=== PATIENT | male | born 1980 | race Caucasian/White ===

== ENCOUNTER 2023-08-02 23:20 | Inpatient (IN) | payer MEDICARE, MEDICAID, SELFPAY ==
[2023-08-03] VITALS (9 sets, daily range): BP systolic 135–181; BP diastolic 88–114; PULSE 94–119; RESP 16; TEMP 36.6–36.9; O2SAT 93–98; BMI 29.6; BMI 29.5
--- NOTE | 2023-08-03 00:30 | ED.GENADULT ---
HPI - General Adult General Time Seen by Provider: 00:21 Date Seen: 08/03/23 Chief complaint: Laceration/Wound Stated complaint: Open wound-infected/painful/red-L foot Time Seen by Provider: 08/03/23 00:21 Source: patient, RN notes reviewed and old records reviewed Mode of arrival: ambulatory Limitations: no limitations History of Present Illness HPI narrative: This 43yo male is coming into the ED this evening for concern of infection in his left leg. He has a known wound on the bottom of his foot, has had amputation due to toe infection on this foot prior. He has had a history of left leg cellulitis. He has had a history of DVT, states he and his doctor been aware but it was below the knee in this leg. In his history here, he has been on Coumadin in the past for treatment of history of DVT. It appears we last saw him for right leg hematoma in September of 2021. He states this ended up opening up and he had a wound for about 9 months. , this was on his right leg. [facility] ulcer on the plantar surface of his left foot, he had gone multiple times but then received a bill for over 400 dollars. He states he cannot afford that. Did review with him that he needs to contact the billing office, make sure that this is correct, make sure that they are sending this through to his insurance. He has maybe had a little nausea tonight but no fevers. He is noticing increased swelling and redness of this leg, has had prior episodes of cellulitis and obviously was concerned that he was developing worsening cellulitis. He is not aware of any history of MRSA. 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 There is reported history of acute cholecystitis, thoracic compression fracture, right leg hematoma. He has had cataract surgery. He reported to have tobacco dependence. Related Data Home Medications Medication Instructions Recorded Confirmed amlodipine 10 mg tablet 10 mg PO DAILY 08/03/23 08/03/23 buprenorphine 8 mg-naloxone 2 mg 2 film sublingual DAILY 08/03/23 08/03/23 sublingual film finasteride 5 mg tablet 5 mg PO DAILY 08/03/23 08/03/23 folic acid 20 mg capsule 20 mg PO DAILY 08/03/23 08/03/23 lisinopril 20 mg tablet 20 mg PO DAILY 08/03/23 08/03/23 methotrexate sodium 2.5 mg tablet 15 mg PO Q7D 08/03/23 08/03/23 Allergies Allergy/AdvReac Type Severity Reaction Status Date / Time acetaminophen [From Percocet] Allergy Intermediate Hives Verified 08/03/23 00:10 oxycodone [From Percocet] Allergy Intermediate Hives Verified 08/03/23 00:10 Review of Systems Status of ROS: Reports: 6 or more systems reviewed and unremarkable except as noted in History and below [facility] Medical History (Updated 08/04/23 @ 15:19 by Frank Lion MD) Chronic pain ?G89.29 - Other chronic pain (ICD-10) History of DVT (deep vein thrombosis) ?Z86.718 - Personal history of other venous thrombosis and embolism (ICD-10) Pulmonary embolism (04/15/14) ?I26.99 - Other pulmonary embolism without acute cor pulmonale (ICD-10) Non-traumatic compression fracture of fourth lumbar vertebra (08/23/17) ?M48.56XA - Collapsed vertebra, not elsewhere classified, lumbar region, initial encounter for fracture (ICD-10) Essential hypertension ?I10 - Essential (primary) hypertension (ICD-10) Diabetic ulcer of toe of left foot associated with type 2 diabetes mellitus (12/20/18) ?E11.621 - Type 2 diabetes mellitus with foot ulcer (ICD-10) ?L97.529 - Non-pressure chronic ulcer of other part of left foot with unspecified severity (ICD-10) Lupus ?M32.9 - Systemic lupus erythematosus, unspecified (ICD-10) Psoriasis ?L40.9 - Psoriasis, unspecified (ICD-10) Social History What is your current living situation?: I presently have a place to live Problems where you live: no known problems Problems where you live details: N/A In the past 12 months, utilities in danger of being shut off: no In past 12 months, lack of transportation kept you from medical appts, meetings, work, or getting things needed for daily living: no In the past 12 mos, have been you worried that your food would run out before you had money to buy more?: never true In the past 12 mos, the food you bought just didn't last and you didn't have money to buy more?: never true Highest level of school completed/degree received: some college, no degree Smoking Status: Current every day smoker What tobacco products do you use: cigarettes Smoking packs per day: 0.5 Smoking cigarettes per day: 10.0 Years smoked: 25 Smoking pack-years: 12.50 How often do you have a drink containing alcohol: never How often do you have six or more drinks on one occasion: Never AUDIT-C Alcohol total score: 0 Non-prescribed substance use: denies use Caffeine: Yes (2 energy drinks daily) How often does anyone, including family, friends and others, physically hurt you: never How often does anyone, including family, friends and others, insult or talk down to you: never How often does anyone, including family, friends and others, threaten you with harm: never How often does anyone, including family, friends and others, scream or curse at you: never service: No Exam Const: Vital Signs, click to edit/add: Vital Signs - 24 hr 08/03/23 00:14 08/03/23 00:30 Temperature 98 F Pulse Rate [Pulse Oximeter] 119 H Respiratory Rate 16 Blood Pressure [Ri ght Upper Arm] 147/94 H Pulse Oximetry 96 96 Oxygen Delivery Me thod Room Air Patient is alert, interactive, no apparent distress. He is in exam room 2. Face atraumatic, sclera clear, conjugate gaze. Neck supple, lungs are clear with good air entry, no wheezing or crackles. CV regular rate and rhythm, no murmur, normal S1-S2, no S3-S4. Abdomen is soft, nontender, feel no masses or organomegaly. He has no pitting edema of his right lower extremity, can see the wound that is healed that was along his right anterior gilmore from the prior hematoma. His left lower extremity has chronic pigmentary changes but also erythema. There is a line demarcated just below the knee to where the erythema extends. He has ulcerated nondraining wound on the plantar surface of this left foot, overlying what would be the 1st metatarsophalangeal joint area. Documenting provider has reviewed patient's vital signs: yes Course Course ED Course: Will obtain ultrasound, need to try to get the of medication list on him. He is also going to get an x-ray of the foot to see if there is any preliminary suggestion of osteomyelitis on this. Will get a full complement of labs, place an IV. I will initiate 1 L of IV fluids. I do think he is likely going to need antibiotics for cellulitis. He is not febrile but mildly tachycardic on presentation. He is having no acute chest or respiratory symptoms at this time. Consultations Consultation #1: Have spoken with the hospitalist Dr. Bridges. Reviewed with him that I do think this patient's cellulitis in wound do require hospitalization. We discussed antibiotic coverage. I would favor coverage for MRSA. Did want use clindamycin. Subsequently ordered 900 mg IV clindamycin. We are still awaiting his foot x-ray to be taken, the ultrasound for DVT to be read. Patient is updated and in agreement to stay. He has enough chronic changes in this lower extremity, an open ulcer, cellulitis and possibly underlying DVT. I certainly feel the most prudent approach is to hit this aggressively with IV antibiotics and get wound care set up for him again. He understands and certainly agrees with this approach. Time: 01:35 Vital Signs Vital signs: Initial Vital Signs Temperature 98 F 08/03/23 00:14 Temperature Source Oral 08/03/23 00:14 Pulse Rate 119 H 08/03/23 00:14 Pulse Rhythm Regular 08/03/23 00:14 Pulse Strength 3+ Normal 08/03/23 00:14 Respiratory Rate 16 08/03/23 00:14 Blood Pressure 147/94 H 08/03/23 00:14 Blood Pressure Mean 111 H 08/03/23 00:14 Blood Pressure Position Sitting 08/03/23 00:14 Pulse Oximetry 96 08/03/23 00:14 Oxygen Delivery Method Room Air 08/03/23 00:14 Vital Signs Temperature 98 F 08/03/23 00:14 Pulse Rate 119 H 08/03/23 00:14 Respiratory Rate 16 08/03/23 00:14 Blood Pressure 147/94 H 08/03/23 00:14 Pulse Oximetry 96 08/03/23 00:14 Oxygen Delivery Method Room Air 08/03/23 00:14 Temperature 98.3 F 08/04/23 08:54 Pulse Rate 99 08/04/23 08:54 Respiratory Rate 16 08/04/23 08:54 Blood Pressure 174/107 H 08/04/23 08:54 Pulse Oximetry 96 08/04/23 08:54 Oxygen Delivery Method Room Air 08/04/23 08:54 Medications Administered Medications: Discontinued Medications Generic Name Dose Route Start Last Admin Trade Name Freq PRN Reason Stop Dose Admin Amlodipine Besylate 10 mg 08/03/23 09:00 08/04/23 08:55 Amlodipine 10 Mg Tablet PO 10 mg DAILY JORDY Administration Buprenorphine/Naloxone 2 each 08/03/23 16:20 08/04/23 08:56 Buprenorphine-Nalox 8-2mg Film SUBLINGUAL 2 each DAILY JORDY Administration Enoxaparin Sodium 100 mg 08/03/23 03:15 08/04/23 03:26 Enoxaparin 100 Mg/Ml Inj SUBCUT 100 mg Q12H JORDY Administration Finasteride 5 mg 08/03/23 09:00 08/04/23 09:21 Finasteride 5 Mg Tablet PO 5 mg DAILY JORDY Administration Folic Acid 1 mg 08/04/23 09:15 08/04/23 09:20 Folic Acid 1 Mg Tablet PO 1 mg DAILY JORDY Administration Hydromorphone HCl 0.2 - 0.5 mg 08/03/23 03:06 08/03/23 03:15 Hydromorphone 0.5 Mg/0.5 Ml Inj IVP 0.5 mg Q2H PRN Administration Pain Hydromorphone HCl 2 mg 08/03/23 16:44 08/04/23 05:25 Hydromorphone 2 Mg Tablet PO 2 mg Q6H PRN Administration Pain Clindamycin Phosphate 600 mg in 50 mls @ 100 mls/hr 08/03/23 01:33 08/03/23 01:36 Clindamycin 600 Mg/50 Ml-D5w IVPB Not Given Q8H JORDY Clindamycin Phosphate 900 mg in 50 mls @ 100 mls/hr 08/03/23 01:33 08/04/23 09:02 Clindamycin 900 Mg/50 Ml-D5w IVPB 100 mls/hr Q8H JORDY Administration Sodium Chloride 1,000 mls @ 125 mls/hr 08/03/23 03:04 08/03/23 03:14 0.9 % Sodium Chloride 1000 Ml IV 125 mls/hr .Q8H JORDY Administration Lisinopril 20 mg 08/04/23 09:10 08/04/23 09:20 Lisinopril 20 Mg Tablet PO 20 mg DAILY JORDY Administration Sodium Chloride 5 ml 08/03/23 02:59 08/03/23 16:56 Sodium Chloride 0.9 % (Flush) 10 Ml Syringe IVF 5 ml .FLUSH PRN Administration Sodium Chloride 5 ml 08/03/23 09:00 08/04/23 08:56 Sodium Chloride 0.9 % (Flush) 10 Ml Syringe IVF 5 ml BID JORDY Administration Medical Decision Making Lab Data Lab results reviewed: Yes I reviewed the patient's lab results Labs: Lab Results 08/03/23 08/03/23 08/03/23 Range/Units 00:40 00:57 07:00 WBC 18.54 H 16.30 H (4.50-11.00) K/uL RBC 4.48 4.08 L (4.30-5.90) m/uL Hgb 12.9 L 11.8 L (13.5-17.5) gm/dL Hct 39.2 35.6 L (37.0-53.0) % MCV 88 87 (80-100) fL MCH 29 29 (26-34) pg MCHC 33 33 (32-36) gm/dL RDW Coeff of Francia 18.5 H 18.4 H (11.5-15.5) % Plt Count 305 306 (140-440) K/uL Neut % (Auto) 85.5 H 82.0 H (42.0-72.0) % Lymph % (Auto) 6.0 L 8.8 L (20-44) % Ramsey % (Auto) 7.3 7.4 (0.0-11.0) % Eos % (Auto) 0.2 0.6 (0.0-7.0) % Baso % (Auto) 0.1 0.2 (0.0-3.0) % Neut # (Auto) 15.90 H 13.40 H (1.7-7.0) K/uL Lymph # (Auto) 1.10 1.40 (0.90-2.90) K/uL Ramsey # (Auto) 1.40 H 1.20 H (0.00-0.90) K/UL Eos # (Auto) 0.00 0.10 (0.00-0.50) K/uL Baso # (Auto) 0.00 0.00 (0.00-0.30) K/uL Abs Immat Gran (auto) 0.20 0.20 (0.00-0.30) K/uL Imm/Tot Granulo (auto) 0.9 1.0 % INR 0.91 (0.91-1.10) D-Dimer Quant (PE/DVT) 1.45 H (0.00-0.50) ug/ml Sodium 131 L 133 L (135-149) mmol/L Potassium 3.9 3.9 (3.6-5.1) mmol/L Chloride 100 106 (96-114) mmol/L Carbon Dioxide 21 22 (20-32) mmol/L Anion Gap 10 5 L (7-15) mEq/L BUN 24 23 (5-24) mg/dL Creatinine 1.7 H 1.5 (0.5-1.5) mg/dL Estimated Creat Clear 67.37 76.35 Estimated GFR 50 58 ml/min Glucose 106 100 (60-115) mg/dL Lactate 0.7 (0.5-1.9) mmol/L Calcium 8.5 8.3 L (8.4-10.6) mg/dL Total Bilirubin 0.7 (0.1-1.5) mg/dL AST 37 H (12-35) U/L ALT 42 (4-50) U/L Alkaline Phosphatase 140 (40-150) U/L C-Reactive Protein 13.8 H (0.5-1.0) mg/dL Total Protein 7.2 (6.0-8.3) g/dL Albumin 3.9 (3.3-5.0) g/dL Procalcitonin 3.39 H (<0.50) ng/mL Lab Acknowledgement Test Added Imaging Data XR left foot: Attestation: I have reviewed the pertinent imaging results. My impression: On the lateral view, do see what appears to be likely soft tissue changes. Cannot say that I definitively see any changes for osteomyelitis. Await Radiology over-read. Radiologist's impression: Patient: KENDRICK WISE Facility:?[facility] Patient ID:?[id number] Site Patient [id number]:?[id number] Site :?1980 Study:?XRay Extremity Left Foot-08/03/2023 2:06:39 AM Ordering Physician:Rebekah Grossman Final Report: INDICATION: Left foot wound. TECHNIQUE: Left foot radiographs, 3 views. COMPARISON: Left foot radiographs 09/30/2016. FINDINGS: Since prior radiographs from 09/30/2016, patient underwent an amputation at the 1st metatarsophalangeal joint. There is moderate to severe soft tissue edema around the 1st metatarsal head, with possible subtle osteopenia medially without definite cortical defects. No acute fractures or dislocation. The remaining joint spaces are preserved. Mild degenerative spurring of the dorsal midfoot. Small plantar calcaneal osteophyte. No subcutaneous emphysema. No radiopaque foreign bodies. IMPRESSION: 1. Status post interval amputation at the 1st MTP joint. 2. Moderate to severe soft tissue swelling involving the amputation site, with possible subtle osteopenia of the metatarsal head medially, without definite osseous erosions identified. If there is continue clinical suspicion for acute osteomyelitis, consider further evaluation with MR or a nuclear medicine triple phase bone scan. 3. No acute fractures or dislocation. Dictated by Alexis Lenz MD @ 08/03/2023 3:11:12 AM (Electronic Signature) Discharge Plan Discharge Clinical Impression: Cellulitis of left leg Chronic foot ulcer Qualifiers: Laterality: left Patient Disposition: Admitted As Observation
--- NOTE | 2023-08-03 00:35 | XR_ITS ---
Final Report Patient: KENDRICK WISE Facility:?[facility] Patient ID:?[id number] Site Patient ID:?[id number] Site :?1980 Study:?XRay Extremity Left Foot-08/03/2023 2:06:39 AM Ordering Physician:Rebekah Grossman Final Report: INDICATION: Left foot wound. TECHNIQUE: Left foot radiographs, 3 views. COMPARISON: Left foot radiographs 09/30/2016. FINDINGS: Since prior radiographs from 09/30/2016, patient underwent an amputation at the 1st metatarsophalangeal joint. There is moderate to severe soft tissue edema around the 1st metatarsal head, with possible subtle osteopenia medially without definite cortical defects. No acute fractures or dislocation. The remaining joint spaces are preserved. Mild degenerative spurring of the dorsal midfoot. Small plantar calcaneal osteophyte. No subcutaneous emphysema. No radiopaque foreign bodies. IMPRESSION: 1. Status post interval amputation at the 1st MTP joint. 2. Moderate to severe soft tissue swelling involving the amputation site, with possible subtle osteopenia of the metatarsal head medially, without definite osseous erosions identified. If there is continue clinical suspicion for acute osteomyelitis, consider further evaluation with MR or a nuclear medicine triple phase bone scan. 3. No acute fractures or dislocation. Dictated by Alexis Lenz MD @ 08/03/2023 3:11:12 AM (Electronic Signature)
--- NOTE | 2023-08-03 00:35 | US_ITS ---
Final Report Patient: KENDRICK WISE Facility:?[facility] Patient ID:?[id number] Site Patient ID:?[id number]. Site :?1980 Study:?US Extremity Left DVT-08/03/2023 1:22:38 AM Ordering Physician:?ED Final Report: INDICATION: Calf redness, history of DVT COMPARISON: None. TECHNIQUE: A compression venous ultrasound exam was performed of the left lower extremity using mckinley-scale imaging, color Doppler and spectral Doppler analysis. FINDINGS: Sonographic imaging of the left lower extremity demonstrates normal compressibility and color Doppler venous blood flow within the common femoral vein, deep femoral vein, and the proximal greater saphenous vein. Within the thigh, the femoral vein is patent and compressible. At a lower level, the popliteal and posterior tibial veins also show normal compressibility and color Doppler venous blood flow. There is a short segment clot within the small saphenous vein in the proximal calf. Limited imaging of the contralateral groin demonstrates a normal spectral waveform and color Doppler venous blood flow within the right common femoral vein. IMPRESSION: No evidence of deep vein thrombosis within the left lower extremity. Short-segment superficial clot within the left proximal calf short saphenous vein. Dictated by Gurpreet España MD @ 08/03/2023 9:03:46 AM (Electronic Signature)
[2023-08-03 00:48] LABS: Lactate* 0.7 mmol/L (0.5-1.9)
[2023-08-03 00:50] LABS: Basophils Percent Auto 0.1 % (0.0-3.0); Eosinophils Percent Auto 0.2 % (0.0-7.0); Hematocrit 39.2 % (37.0-53.0); Hemoglobin* 12.9 gm/dL (13.5-17.5); Immature Granulocytes Pct Auto 0.9 %; Mean Corpuscular HGB Conc 33 gm/dL (32-36); Mean Corpuscular Hemoglobin 29 pg (26-34); Mean Corpuscular Volume 88 fL (80-100); Monocytes Percent Auto 7.3 % (0.0-11.0); Neutrophils Percent Auto 85.5 % (42.0-72.0); Platelet Count* 305 K/uL (140-440); RDW Coefficient of Variation % 18.5 % (11.5-15.5); Red Blood Count 4.48 m/uL (4.30-5.90); White Blood Count* 18.54 K/uL (4.50-11.00)
[2023-08-03 00:52] LABS: Slide Review Reflex No
[2023-08-03 01:12] LABS: Albumin* 3.9 g/dL (3.3-5.0); Chloride* 100 mmol/L (96-114)
[2023-08-03 01:13] LABS: Potassium* 3.9 mmol/L (3.6-5.1); Sodium* 131 mmol/L (135-149)
[2023-08-03 01:15] LABS: Bilirubin Total* 0.7 mg/dL (0.1-1.5); Creatinine* 1.7 mg/dL (0.5-1.5); Est. Creatinine Clearance* 67.37; Estimated Glomerular Filt Rate 50 ml/min
[2023-08-03 01:16] LABS: Alanine Aminotransferase* 42 U/L (4-50); Alkaline Phosphatase* 140 U/L (40-150); Anion Gap 10 mEq/L (7-15); Aspartate Amino Transferase* 37 U/L (12-35); Blood Urea Nitrogen* 24 mg/dL (5-24); Calcium* 8.5 mg/dL (8.4-10.6); Carbon Dioxide* 21 mmol/L (20-32); Glucose* 106 mg/dL (60-115); Total Protein* 7.2 g/dL (6.0-8.3)
[2023-08-03 01:17] LABS: INR 0.91 (0.91-1.10); Prothrombin Time 12.8 Seconds
[2023-08-03 01:19] LABS: D Dimer Quantitative* 1.45 ug/ml (0.00-0.50)
--- OUTSIDE RECORDS SUMMARY | 2023-08-03 01:20 | XMS_ITS | Clinical Summary ---
Author Name Unknown Organization [facility] Address [address] [place] [address] Care Team Providers Care Housekeeper Head Name Role Phone Dominik Tan MD Primary Care Provider [phone] Allergies Active Allergy Reactions Criticality Noted Date Comments Hydrocodone-Acetaminophen Itching 04/07/2012 Medications Medication Sig Dispensed Refills Start Date End Date Status lisinopril (PRINIVIL) 40 mg oral tablet Take 20 mg by mouth once daily. 0 Active HYDROmorphone (DILAUDID) 4 mg oral tablet Take 1-2 tablets (4-8 mg) by mouth every 4 (four) hours as needed (Pain). 80 tablet 0 08/24/2017 Active oxyCODONE-acetaminoph en (PERCOCET) 5-325 mg oral tablet Take 1 tablet by mouth every 6 (six) hours as needed for Pain. 40 tablet 0 12/20/2018 Active Active Problems Problem Noted Date Diagnosed Date Diabetic ulcer of toe of lef t foot associated with type 2 diabetes mellitus, with muscle involvement without evidence of necrosis 12/20/2018 Non-traumatic compression fr acture of fourth lumbar vertebra 08/23/2017 Low back pain 08/23/2017 Pneumonia 04/15/2014 Pleural effusion 04/15/2014 Pulmonary embolism 04/15/2014 Systemic lupus erythematosus , unspecified SLE type, unspecified organ involvement status Essential hypertension DVT (deep venous thrombosis), unspecified latera lity Acute midline low back pain with bilateral sciat ica Non-traumatic compression fr acture of fourth lumbar vertebra, initial encounter Overview: Vendor update to replace retired or updated dx codes and/or terms. Family History Medical History Relation Comments Heart Disease Mother age 47 Relation Status Comments Mother Social History Tobacco Use Types Packs/Day Years Used Date Smoking Tobacco: Every Day Cigarettes 0.5 25 Smokeless Tobacco: Never Comments:quitting Alcohol Use Standard Drinks/Week Comments Yes 0 (1 standard drink = 0.6 oz pur e alcohol) 1-2 times a month Sex and Gender Information Value Date Recorded Sex Assigned at Not on file Gender Identity Not on file Sexual Orientation Not on file Last Filed Vital Signs Vital Sign Reading Time Taken Comments Blood Pressure 130/88 09/21/2021 9:22 AM CDT Pulse 103 09/21/2021 9:22 AM CDT Temperature 36.2 ??C (97.2 ??F) 09/21/2021 9:22 AM CD T Respiratory Rate 16 01/22/2019 8:03 AM CDT Oxygen Saturation 94% 09/21/2021 9:22 AM CDT Inhaled Oxygen Concentration - - Weight 129.3 kg (285 lb) 12/20/2018 8:54 AM CDT Height 195.6 cm (6' 5) 12/20/2018 8:54 AM CDT Body Mass Index 33.8 12/20/2018 8:54 AM CDT Plan of Treatment Health Maintenance Due Date Last Done Comments Colonoscopy 1980 Eye Exam 1980 Medicare Wellness Visit 1980 COVID-19 Vaccine (#1) 1978 Anxiety Screening (KAVITA-2) 1979 Depression Assessment (PHQ-2) 1979 Pneumococcal <65 (1 of 2 - PCV) 02/22/1984 HgbA1C 01/29/2021 08/01/2020 Creatinine 02/06/2022 02/06/2021, 07/21, 03/30/2019, Additional history exists Influenza Vaccine (#1) 2023 04/20/2021, 2016 Adult Tetanus Booster 11/01/2026 11/01/2016 Hepatitis C Screening Completed 10/17/2003 Advance Directives For more information, please contact: [phone] Latest Code Status on File Code Status Date Activated Date Inactivated Comments Full Code 08/23/2017 4:16 PM 08/24/2017 9:23 PM Question Answer Comments How was code status determined? Patient Code Status History Code Status Date Activated Date Inactivated Comments Full Code 04/15/2014 1:38 PM 04/17/2014 10:38 PM Question Answer Comments How was code status determined? Patient Care Teams Housekeeper Head Relationship Specialty Start Date End Date Dominik Tan MD [address] [facility] [address] [place] [address] PCP - General Family Medicine 08/10/22
--- OUTSIDE RECORDS SUMMARY | 2023-08-03 01:20 | XMS_ITS | Referral Summary ---
Author Name Unknown Organization [facility] Address [address] [place] [address] Care Team Providers Care Filter Tank Tender Helper Name Role Phone Dominik Tan MD Primary Care Provider Allergies Active Allergy Reactions Criticality Noted Date [...] retired or updated dx codes and/or terms. Social History Tobacco Use Types Packs/Day Years [...] 12/20/2018 8:54 AM CDT Plan of Treatment Not on file Advance Directives For more information, please contact: [phone] Latest Code Status on File Code Status Date Activated Date Inactivated Comments Full Code 08/23/2017 4:16 PM 08/24/2017 9:23 PM Question Answer Comments How was code status determined? Patient Code Status History Code Status Date Activated Date Inactivated Comments Full Code 04/15/2014 1:38 PM 04/17/2014 10:38 PM Question Answer Comments How was code status determined? Patient Care Teams Filter Tank Tender Helper Relationship Specialty Start Date End Date Dominik Tan MD [address] [facility] [address] [place] [address] PCP - General Family Medicine 08/10/22
--- OUTSIDE RECORDS SUMMARY | 2023-08-03 01:20 | XMS_ITS | Encounter Summary ---
Author Name Unknown Organization [facility] Address [address] [place] [id number] Care Team Providers Care Strategic Analyst Name Role Phone Dominik Tan MD Primary Care Provider [phone] Encounter Details Date Type Department Care Team (Latest Contact Info) Description 03/14/2023 3:10 PM CDT Ancillary Procedure [address] [place] [address] Right hand pain Social History Tobacco Use Types Packs/Day Years Used Date Smoking Tobacco: Every Day Cigarettes 0.5 25 Smokeless Tobacco: Never Comments:quitting Alcohol Use Standard Drinks/Week Comments Yes 0 (1 standard drink = 0.6 oz pur e alcohol) 1-2 times a month Sex and Gender Information Value Date Recorded Sex Assigned at Not on file Gender Identity Not on file Sexual Orientation Not on file documented as of this encounter Plan of Treatment Not on file documented as of this encounter Procedures Procedure Name Priority Date/Time Associated Diagnosis Comments XR HAND RT 3 VIEW Routine 03/14/2023 3:2 6 PM CDT Right hand pain documented in this encounter Results * XR HAND RT 3 VIEW (03/14/2023 3:26 PM CDT) Anatomical Region Laterality Modality Extremity Radiographic Kylee ging 03/14/2023 3:47 PM CDT Impressions 03/14/2023 3:50 PM CDT IMPRESSION: 1. ??Prior posttraumatic deformity of the 5th metacarpal. 2. 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 No discrete acute fracture or dislocation visualized. REPORT SIGNED BY Patt Cosme M.D. [facility] 03/14/2023 3:50 PM CDT EXAM: ??XR HAND RT 3 VIEW DATE: 03/14/2023 3:06 PM CLINICAL DATA: ??Male, 43 years old, presents with pain in the right hand. COMPARISON: ??04/07/2012 right hand radiographs. TECHNIQUE:PA, PA oblique and lateral views. INTERPRETATION: ?? Diffuse soft tissue edema. No retained radiopaque foreign body. Old fracture deformity of the 5th metacarpal. 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 Remodeling of the 1st CMC joint. No discrete acute fracture or dislocation visualized. Generally preserved MCP and IP joint spaces. Stable small bone island in the distal phalanx of the 4th finger. Procedure Note Patt Cosme MD - 03/14/2023 EXAM: XR HAND RT 3 VIEW DATE: 03/14/2023 3:06 PM CLINICAL DATA: Male, 43 years old, presents with pain in the right hand. COMPARISON: 04/07/2012 right hand radiographs. TECHNIQUE:PA, PA oblique and lateral views. INTERPRETATION: Diffuse soft tissue edema. No retained radiopaque foreign body. Oldfracture deformity of the 5th metacarpal. Advanced hypertrophicdegeneration of the 1st CMC joint with multiple adjacent ossicles.Remodeling of the 1st CMC joint. No discrete acute fracture or dislocationvisualized. Generally preserved MCP and IP joint spaces. Stable small boneisland in the distal phalanx of the 4th finger. IMPRESSION IMPRESSION: 1. Prior posttraumatic deformity of the 5th metacarpal. 2. 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 No discrete acute fracture or dislocation visualized. REPORT SIGNED BY Patt Cosme M.D. Dominik Tan MD XRAY ORDERABLE documented in this encounter Visit Diagnoses Diagnosis Right hand pain Pain in limb documented in this encounter Care Teams Strategic Analyst Relationship Specialty Start Date End Date Dominik Tan MD [address] [facility] [address] [place] [address] PCP - General Family Medicine 08/10/22 documented as of this encounter
--- OUTSIDE RECORDS SUMMARY | 2023-08-03 01:21 | XMS_ITS | Clinical Summary ---
Author Name Unknown Organization [facility] Address [address] [place] [address] Phone Care Team Providers Care Shot Lighter Name Role Phone Dominik Tan MD Primary Care Provider [phone] Family History Medical History Relation Comments Heart disease Mother 2 Relation Status Comments Father Unknown Mother 1 Mother 2 Social History Tobacco Use Types Packs/Day Years Used Date Smoking Tobacco: Every Day Cigarettes 0.5 Alcohol Use Standard Drinks/Week Comments Yes 0 (1 standard drink = 0.6 oz pure alcohol) Alcoholic Drinks/day: Occasional social drink Sex and Gender Information Value Date Recorded Sex Assigned at Not on file Gender Identity Not on file Sexual Orientation Not on file Plan of Treatment Health Maintenance Due Date Last Done Comments Hepatitis B Vaccine (1 of 3 - 3-dose series) 1980 Pneumococcal Vaccine: Pediat rics (0 to 5 Years) and At-Risk Patients (6 to 64 Years) (1 of 2 - PCV) 02/22/1984 Diabetes: Ophthalmology Exam 09/01/2020 Diabetes: Pedal Pulse Checked 09/01/2020 Diabetes: Sensory Foot Exam 09/01/2020 Diabetes: Visual Foot Exam 09/01/2020 Diabetes: Hemoglobin A1C 10/29/2020 08/01/2020, 01/18 Influenza Vaccine (#1) 2023 Care Teams Shot Lighter Relationship Specialty Start Date End Date Dominik Tan MD [address] [facility] [address] [place] [address] PCP - General 03/05/19
--- OUTSIDE RECORDS SUMMARY | 2023-08-03 01:21 | XMS_ITS | Encounter Summary ---
Author Name Unknown Organization [facility] Address [address] [place] [address] Care Team Providers Care Bus Washer Name Role Phone Dominik Tan MD Primary Care Provider [phone] Reason for Referral * (Routine) - Closed Specialty Diagnoses / Procedures Referred By Contac t Referred To Contact Diagnoses CAPUTO (dyspnea on exertion) Procedures [facility] NUCLEAR STRESS TEST Dominik Tan MD [address] [place] [id number] Referral ID Status Reason Start Date Expiration Date Visits Re quested Visits Authorized [id number] Closed 07/28/2022 1 1 PRODUCTION ASSISTANT Reason for Visit * (Routine) - Closed Specialty Diagnoses / Procedures Referred By Contbrenda hernadez Referred To Contact Diagnoses CAPUTO (dyspnea on exertion) Procedures [facility] NUCLEAR STRESS TEST Dominik Tan MD [address] [place] [id number] Referral ID Status Reason Start Date Expiration Date Visits Re quested Visits Authorized [id number] Closed 07/28/2022 1 1 Encounter Details Date Type Department Care Team (Latest Contact Info) Description 08/16/2022 7:35 AM POST PRODUCTION ASSISTANT - 08/16/2022 11:59 PM POST PRODUCTION ASSISTANT Hospital Encounter [facility] V[facility] Cardiac [facility] [address] [place] [address] [id number] Discharge Disposition: Returning Home/Self Care Social History Tobacco Use Types Packs/Day Years Used Date Smoking Tobacco: Every Day Cigarettes 0.5 25 Smokeless Tobacco: Never Comments:quitting Alcohol Use Standard Drinks/Week Comments Yes 0 (1 standard drink = 0.6 oz pur e alcohol) 1-2 times a month Sex and Gender Information Value Date Recorded Sex Assigned at Not on file Gender Identity Not on file Sexual Orientation Not on file COVID-19 Exposure Response Date Recorded In the last 10 days, have yo u been in contact with someone who was confirmed or suspected to have Coronavirus/COVID-19? No / Unsure 08/16/2022 7:33 AM POST PRODUCTION ASSISTANT documented as of this encounter Medications at Time of Discharge Medication Sig Dispensed Refills Start Date End Date HYDROmorphone (DILAUDID) 4 mg oral tablet Take 1-2 tablets (4-8 mg) by mouth every 4 (four) hours as needed (Pain). 80 tablet 0 08/24/2017 lisinopril (PRINIVIL) 40 mg oral tablet Take 20 mg by mouth once daily. 0 oxyCODONE-acetaminophen (PERCOCET) 5-325 mg oral tablet Take 1 tablet by mouth every 6 (six) hours as needed for Pain. 40 tablet 0 12/20/2018 documented as of this encounter Plan of Treatment Not on file documented as of this encounter Procedures Procedure Name Priority Date/Time Associated Diagnosis Comments NM STRESS TEST Routine 08/16/2022 9:34 AM POST PRODUCTION ASSISTANT CAPUTO (dyspnea on exertion) documented in this encounter Results * NM STRESS TEST (08/16/2022 9:34 AM POST PRODUCTION ASSISTANT) 08/16/2022 8:00 AM POST PRODUCTION ASSISTANT Narrative TEST - 08/16/2022 11:58 AM POST PRODUCTION ASSISTANT Summary ??1. Abnormal stress Cardiolite with a fixed inferior perfusion defect (see text). ??2. Stress EKG is negative for ischemia. ??3. No chest pain noted. ??4. Post stress left ventricular ejection fraction is normal, estimated LVEF, 56 %. ??5. No prior stress Cardiolite available for comparison. Patient Info Name: ? Rashad ?? Leena Age: ? 42 years : ? 1980 Gender: ? Male Accession #: ? [id number] Ht: ? 76 in Wt: ? 267 lb BMI: ? 32.50 HR: ? 89 bpm BP: ? 144 / ? 84 mmHg Heart Rhythm: ? Right Bundle Branch Block Technical Quality: ? Diagnostic quality Exam Date: ? 08/16/2022 8:00 AM Patient Status: ? Outpatient Admit Date: ? 08/16/2022 Primary Loc: ? [facility] Study Info Indications ?Shortness of breath - ?Palpitations - Exam Type: ? NM STRESS TEST Upright Gated Rest SPECT images and Upright Gated Stress SPECT images obtained post sestamibi injection. Supine Stress SPECT images obtained. Staff Ordering Physician: ? Dominik Tan Door Slinger: ? Md Montiel Primary Care Physician: ? Dominik Tan Hydrometallurgical Engineer: ? KWADWO Baker, RT (N) (CT) (ARRT) Stress Personnel: ? Apryl Courtney RN, Niurka Courtney, 3D Designer History/Risk Factors History/Risk Factors Hypertension: ? Yes Dyslipidemia: ? No Diabetes Mellitus: ? No Family History of CAD: ? Yes Sedentary: ? Yes Tobacco Use: ? Yes Heart/Lung Sounds ??No murmur, CTA. Prior Interventions Pacemaker: ? No PCI: ? No Medications Held Name: ? Amlodipine Held: ? Yes Stress ECG Details Protocol: ? Regadenoson Rest HR: ? 89 bpm Peak HR: ? 126 bpm Rest Sys BP: ? 144 mmHg Peak Sys BP: ? 164 mmHg Max Pred HR: ? 176 bpm % Max Pred HR: ? 72 % Target HR: ? 150 bpm Max RPP: ? 20,664 bpm*mmHg Adequacy of Test: ? Typical symptoms with regadenoson infusion. Probable adequate vasodilation response. Termination Reason: ? Regadenoson protocol completed Total Time: ? 1 min : 0 sec Rest Hutchins BP: ? 84 mmHg Peak Hutchins BP: ? 86 mmHg Total Dose: ? 0.4 mg Aminophylline Dose: ? 0 Resting ECG ??The electrocardiogram rest showed normal sinus rhythm at 90 bpm with a right bundle branch block. Stress ECG ??The electrocardiogram at peak pharmacologic stress and recovery showed no ST segment changes to suggest ischemia. Stage: ? Rest Duration (min): ? 0 min : 0 sec HR (bpm): ? 89 SBP (mmHg): ? 144 DBP (mmHg): ? 84 SPO2: ? 96 Symptoms: ? None Stage: ? Exe 1 Duration (min): ? 1 min : 0 sec HR (bpm): ? 124 SBP (mmHg): ? 158 DBP (mmHg): ? 84 SPO2: ? 96 Symptoms: ? Dyspnea: Mild Stage: ? Rec 1 Duration (min): ? 1 min : 0 sec HR (bpm): ? 126 SBP (mmHg): ? 164 DBP (mmHg): ? 86 SPO2: ? 98 Symptoms: ? Dyspnea: Mild Comments: ? PVC Stage: ? Rec 3 Duration (min): ? 3 min : 0 sec HR (bpm): ? 125 SBP (mmHg): ? 160 DBP (mmHg): ? 82 SPO2: ? 97 Symptoms: ? None Stage: ? Rec 5 Duration (min): ? 5 min : 0 sec HR (bpm): ? 122 SBP (mmHg): ? 148 DBP (mmHg): ? 82 SPO2: ? 97 Symptoms: ? None Stage: ? Rec 7 Duration (min): ? 7 min : 0 sec HR (bpm): ? 114 SBP (mmHg): ? --- DBP (mmHg): ? --- Symptoms: ? None Stage: ? Recovery Duration (min): ? 7 min : 26 sec HR (bpm): ? 110 SBP (mmHg): ? --- DBP (mmHg): ? --- Symptoms: ? None Post Vasodilator Lowest HR: ? 89 bpm Lowest Sys BP: ? 144 mmHg Lowest Hutchins BP: ? 84 mmHg Stress Symptoms ??Dyspnea: Mild noted during stress. Effort Tolerance: ? Not applicable. Route of Administration: ? Intravenous Duration of Administration: ? 10 seconds Radiopharmaceutical: ? Tc-99m Sestamibi Route of Administration: ? Intravenous Radiopharmaceutical: ? Tc-99m Sestamibi Route of Administration: ? Intravenous Image Protocol Protocol: ? Rest/Stress 1 Day Rest Dose: ? 10.2 mCi Stress Dose: ? 31.2 mCi SPECT Results Perfusion Findings Post stress left ventricular ejection fraction is normal, estimated LVEF, 56 %. Transient Ischemic Dilatation of 1.06 (normal). Lung to heart ratio (LHR) uptake is 0.32 (normal). With stress there is a moderate-sized area of mildly decreased isotope uptake involving the entire inferior wall. With rest image acquisition there were no isotope changes in this distribution. With the absence of a corresponding wall motion abnormality, the findings were most compatible with diaphragmatic attenuation, though an area of prior partial thickness infarction cannot be completely excluded. Summed Difference Score: ? 0 Summed Stress Score: ? 6 Summed Rest Score: ? 15 Motion Correction: ? No motion correction artifact. Motion correction not applied. Functional Results Name ? Value ?Normal Stress Stress LV Ejection Fraction ? 56 % ? 55-70 Stress LV End Systolic Volume ? 73 ml ? Nuclear Stress Cardiac Output ? 8.9 l/min ? Stress LV End Diastolic Volume ?165 ml ? Transient Ischemic Dilatation ?1.06 ? Nuclear Stress Myocardial Mass ? 183 g Functional Results Name ? Value ?Normal Rest Resting LV Ejection Fraction ?50 % ? 55-70 Resting LV End Systolic Volume ? 79 ml ? Nuclear Rest Myocardial Mass ? 177 g ? Resting LV End Diastolic Volume ?158 ml ? Nuclear Rest Cardiac Output ?7.3 l/min Functional Findings ??Stress ejection fraction is 56 % and Rest ejection fraction is 50 % - Empty. Report Signatures MPI SPECT Finalized by Sam Buck ?? on 08/16/2022 11:58 AM Stress Finalized by Sam Buck ?? on 08/16/2022 11:58 AM Procedure Note Sam Buck MD - 08/16/2022 Summary 1. Abnormal stress Cardiolite with a fixed inferior perfusion defect(see text). 2. Stress EKG is negative for ischemia. 3. No chest pain noted. 4. Post stress left ventricular ejection fraction is normal, estimatedLVEF, 56 %. 5. No prior stress Cardiolite available for comparison. Patient Info Name: Rashad Stern Age: 42 years : 1980 Gender: Male Ht: 76 in Wt: 267 lb BMI: 32.50 HR: 89 bpm BP: 144 / 84 mmHg Heart Rhythm: Right Bundle Branch Block Technical Quality: Diagnostic quality Exam Date: 08/16/2022 8:00 AM Patient Status: Outpatient Admit Date: 08/16/2022 Primary Loc: [facility] Study Info Indications Shortness of breath - Palpitations - Exam Type: NM STRESS TEST Upright Gated Rest SPECT images and Upright Gated Stress SPECT imagesobtained post sestamibi injection. Supine Stress SPECT images obtained. Staff Ordering Physician: Dominik Tan Door Slinger: Md Montiel Primary Care Physician: Dominik Tan Hydrometallurgical Engineer: KWADWO Baker, RT (N) (CT) (ARRT) Stress Personnel: Apryl Courtney RN, Niurka Courtney, 3D Designer History/Risk Factors History/Risk Factors Hypertension: Yes Dyslipidemia: No Diabetes Mellitus: No Family History of CAD: Yes Sedentary: Yes Tobacco Use: Yes Heart/Lung Sounds No murmur, CTA. Prior Interventions Pacemaker: No PCI: No Medications Held Name: Amlodipine Held: Yes Stress ECG Details Protocol: Regadenoson Rest HR: 89 bpm Peak HR: 126 bpm Rest Sys BP: 144 mmHg Peak Sys BP: 164 mmHg Max Pred HR: 176 bpm % Max Pred HR: 72 % Target HR: 150 bpm Max RPP: 20,664 bpm*mmHg Adequacy of Test: Typical symptoms with regadenoson infusion.Probable adequate vasodilation response. Termination Reason: Regadenoson protocol completed Total Time: 1 min : 0 sec Rest Hutchins BP: 84 mmHg Peak Hutchins BP: 86 mmHg Total Dose: 0.4 mg Aminophylline Dose: 0 Resting ECG The electrocardiogram rest showed normal sinus rhythm at 90 bpm with aright bundle branch block. Stress ECG The electrocardiogram at peak pharmacologic stress and recovery showedno ST segment changes to suggest ischemia. Stage: Rest Duration (min): 0 min : 0 sec HR (bpm): 89 SBP (mmHg): 144 DBP (mmHg): 84 SPO2: 96 Symptoms: None Stage: Exe 1 Duration (min): 1 min : 0 sec HR (bpm): 124 SBP (mmHg): 158 DBP (mmHg): 84 SPO2: 96 Symptoms: Dyspnea: Mild Stage: Rec 1 Duration (min): 1 min : 0 sec HR (bpm): 126 SBP (mmHg): 164 DBP (mmHg): 86 SPO2: 98 Symptoms: Dyspnea: Mild Comments: PVC Stage: Rec 3 Duration (min): 3 min : 0 sec HR (bpm): 125 SBP (mmHg): 160 DBP (mmHg): 82 SPO2: 97 Symptoms: None Stage: Rec 5 Duration (min): 5 min : 0 sec HR (bpm): 122 SBP (mmHg): 148 DBP (mmHg): 82 SPO2: 97 Symptoms: None Stage: Rec 7 Duration (min): 7 min : 0 sec HR (bpm): 114 SBP (mmHg): --- DBP (mmHg): --- Symptoms: None Stage: Recovery Duration (min): 7 min : 26 sec HR (bpm): 110 SBP (mmHg): --- DBP (mmHg): --- Symptoms: None Post Vasodilator Lowest HR: 89 bpm Lowest Sys BP: 144 mmHg Lowest Hutchins BP: 84 mmHg Stress Symptoms Dyspnea: Mild noted during stress. Effort Tolerance: Not applicable. Route of Administration: Intravenous Duration of Administration: 10 seconds Radiopharmaceutical: Tc-99m Sestamibi Route of Administration: Intravenous Radiopharmaceutical: Tc-99m Sestamibi Route of Administration: Intravenous Image Protocol Protocol: Rest/Stress 1 Day Rest Dose: 10.2 mCi Stress Dose: 31.2 mCi SPECT Results Perfusion Findings Post stress left ventricular ejection fraction is normal, estimated LVEF,56 %. Transient Ischemic Dilatation of 1.06 (normal). Lung to heart ratio(LHR) uptake is 0.32 (normal). With stress there is a moderate-sized area ofmildly decreased isotope uptake involving the entire inferior wall. With restimage acquisition there were no isotope changes in this distribution. With the absence of a corresponding wall motion abnormality, the findings weremost compatible with diaphragmatic attenuation, though an area of priorpartial thickness infarction cannot be completely excluded. Summed Difference Score: 0 Summed Stress Score: 6 Summed Rest Score: 15 Motion Correction: No motion correction artifact. Motion correctionnot applied. Functional Results Name Value Normal Stress Stress LV Ejection Fraction 56 % 55-70 Stress LV End Systolic Volume 73 ml Nuclear Stress Cardiac Output 8.9 l/min Stress LV End Diastolic Volume 165 ml Transient Ischemic Dilatation 1.06 Nuclear Stress Myocardial Mass 183 g Functional Results Name Value Normal Rest Resting LV Ejection Fraction 50 % 55-70 Resting LV End Systolic Volume 79 ml Nuclear Rest Myocardial Mass 177 g Resting LV End Diastolic Volume 158 ml Nuclear Rest Cardiac Output 7.3 l/min Functional Findings Stress ejection fraction is 56 % and Rest ejection fraction is 50 % -Empty. Report Signatures MPI SPECT Finalized by Sam Buck MD on 08/16/2022 11:58 AM Stress Finalized by Sam Buck MD on 08/16/2022 11:58 AM Dominik Tan MD NM HVI ORDERABLE TEST documented in this encounter Visit Diagnoses Diagnosis CAPUTO (dyspnea on exertion) Other dyspnea and respiratory abnormality documented in this encounter Administered Medications Inactive Administered Medications - up to 3 most recent administrations Medication Order MAR Action Action Date Dose Rate Site regadenoson (LEXISCAN) injection (conc: 0.08 mg/mL) 0.4 mg 0.4 mg, Intravenous, INTRA-PROCEDURE ONE TIME DOSE NEEDED, 1 dose, Starting on Tue08/16/22 at 0814, Until Tue08/16/22 at 0854, per procedure Given 08/16/2022 8:54 AM POST PRODUCTION ASSISTANT 0.4 mg Tc-99m Cardiolyte (SESTAMIBI) injection 5-65 millicurie 5-65 millicurie, Intravenous, ONCE NEEDED, MAY REPEAT X 1, 2 doses, Starting on Tue08/16/22 at 0814, Until Tue08/17/22 at 0605, per procedure Given 08/16/2022 8:55 AM POST PRODUCTION ASSISTANT 31.2 millicuries documented in this encounter Care Teams Bus Washer Relationship Specialty Start Date End Date Dominik Tan MD [address] [place] [address] PCP - General Family Medicine 08/10/22 documented as of this encounter
--- OUTSIDE RECORDS SUMMARY | 2023-08-03 01:21 | XMS_ITS | Encounter Summary ---
Author Name Unknown Organization [facility] Address [address] [place] [address] Care Team Providers Care Associate Dean Of Students Name Role Phone Dominik Tan MD Primary Care Provider [phone] Encounter Details Date Type Department Care Team (Latest Contact Info) Description 08/16/2022 Travel Social History Tobacco Use Types Packs/Day Years [...] Coronavirus/COVID-19? No / Unsure 08/16/2022 7:33 AM TERMITE CONTROL SERVICE REPRESENTATIVE documented as of this encounter Plan of Treatment Not on file documented as of this encounter Visit Diagnoses Not on filedocumented in this encounter Care Teams Associate Dean Of Students Relationship Specialty Start Date End Date Dominik Tan MD [address] [place] [address] PCP - General Family Medicine 08/10/22 documented as of this encounter
--- OUTSIDE RECORDS SUMMARY | 2023-08-03 01:21 | XMS_ITS | Encounter Summary ---
Author Name Unknown Organization [facility] Address [address] [place] [id number] Care Team Providers Care Opto Mechanical Technician Name Role Phone Dominik Tan MD Primary Care Provider [phone] Reason for Referral * (Routine) - Open Specialty Diagnoses / Procedures Referred By Sandra hernadez Referred To Contact Diagnoses Right shoulder pain, unspecified chronicity Procedures MRI SHOULDER RT W/O Dominik Cueva MD [address] [place] [id number] Referral ID Status Reason Start Date Expiration Date Visits Re quested Visits Authorized [id number] Open 08/02/2022 1 1 MOTIVE SALES SPECIALIST Reason for Visit * (Routine) - Open Specialty Diagnoses / Procedures Referred By Sandra hernadez Referred To Contact Diagnoses Right shoulder pain, unspecified chronicity Procedures MRI SHOULDER RT W/O Dominik Cueva MD [address] [place] [id number] Referral ID Status Reason Start Date Expiration Date Visits Re quested Visits Authorized [id number] Open 08/02/2022 1 1 Encounter Details Date Type Department Care Team (Latest Contact Info) Description 08/03/2022 8:52 AM AUTOMOTIVE SALES SPECIALIST - 08/03/2022 11:59 PM AUTOMOTIVE SALES SPECIALIST Hospital Encounter [facility] [address], [address] [place], [place] [address] Discharge Disposition: Returning Home/Self Care Social History [...] on file documented as of this encounter Medications at [...] Procedure Name Priority Date/Time Associated Diagnosis Comments MRI SHOULDER RT W/O CON Routine 08/03/2022 9:58 AM AUTOMOTIVE SALES SPECIALIST Right shoulder pain, unspecified chronicity documented in this encounter Results * MRI SHOULDER RT W/O CON (08/03/2022 9:58 AM AUTOMOTIVE SALES SPECIALIST) Anatomical Region Laterality Modality Extremity Magnetic Resonan ce 08/03/2022 10:2 5 AM AUTOMOTIVE SALES SPECIALIST Impressions 08/03/2022 10:46 AM AUTOMOTIVE SALES SPECIALIST IMPRESSION: 1. ??Avascular necrosis without displaced fragment involving the posterior and the superior humeral head. 2. ??Secondary degenerative changes of the glenohumeral articulation. 3. ??Biceps tendinopathy with medial dislocation into the subscapularis fibers. 4. ??Tendinopathy of the subscapularis and supraspinatus without evidence of rotator cuff tear. 5. ??Acromioclavicular degenerative changes. Scarring of the coracoclavicular ligament. 6. ??Edema extending along the short head and long head of biceps. REPORT SIGNED BY DR. Rashad Thompson Narrative 08/03/2022 10:46 AM AUTOMOTIVE SALES SPECIALIST EXAMINATION: MRI SHOULDER RT W/O CON ?? DATE: 08/03/2022 9:01 AM CLINICAL DATA: M25.511 Pain in right shoulder. Assess for internal derangement. TECHNIQUE: Multiplanar T1, proton-density, fat sat proton-density, and T2 of the shoulder. COMPARISON: 07/30/2022 FINDINGS: Rotator Cuff: Mild tendinopathy distal supraspinatus. Moderate tendinopathy subscapularis. Infraspinatus and teres minor are unremarkable. Acromioclavicular Joint : Prominent acromioclavicular joint hypertrophy with downsloping lateral margin of the type I acromion. Mild scarring of the coracoclavicular ligament. Glenohumeral Joint: Avascular necrosis at superior and posterior humeral head. Superior subluxation of the humeral head. Glenohumeral cartilage thinning. Secondary degenerative changes. Biceps/Labral Complex: Bicipital tendinopathy with medial dislocation of the long head of biceps tendon into the subscapularis fibers. Degenerative fraying of the glenoid labrum. Periarticular Tissues: Mild periarticular edema extending along the biceps tendon. Procedure Note de Rashad Adams MD - 08/03/2022 EXAMINATION: MRI SHOULDER RT W/O CON DATE: 08/03/2022 9:01 AM CLINICAL DATA: M25.511 Pain in right shoulder. Assess for internalderangement. TECHNIQUE: Multiplanar T1, proton-density, fat sat proton-density, and T2of the shoulder. COMPARISON: 07/30/2022 FINDINGS: Rotator Cuff: Mild tendinopathy distal supraspinatus. Moderate tendinopathysubscapularis. Infraspinatus and teres minor are unremarkable. Acromioclavicular Joint : Prominent acromioclavicular joint hypertrophy with downsloping lateralmargin of the type I acromion. Mild scarring of the coracoclavicularligament. Glenohumeral Joint: Avascular necrosis at superior and posterior humeral head. Superiorsubluxation of the humeral head. Glenohumeral cartilage thinning.Secondary degenerative changes. Biceps/Labral Complex: Bicipital tendinopathy with medial dislocation of the long head of bicepstendon into the subscapularis fibers. Degenerative fraying of the glenoidlabrum. Periarticular Tissues: Mild periarticular edema extending along the biceps tendon. IMPRESSION IMPRESSION: 1. Avascular necrosis without displaced fragment involving the posteriorand the superior humeral head. 2. Secondary degenerative changes of the glenohumeral articulation. 3. Biceps tendinopathy with medial dislocation into the subscapularisfibers. 4. Tendinopathy of the subscapularis and supraspinatus without evidenceof rotator cuff tear. 5. Acromioclavicular degenerative changes. Scarring of thecoracoclavicular ligament. 6. Edema extending along the short head and long head of biceps. REPORT SIGNED BY DR. Rashad Thompson Dominik Tan MD MRI ORDERABLE documented in this encounter Visit Diagnoses Diagnosis Right shoulder pain, unspecified chronicity documented in this encounter Care Teams Opto Mechanical Technician Relationship Specialty Start Date End Date Dominik Tan MD PCP - General Family Medicine 04/15/14 08/09/22 documented as of this encounter
[2023-08-03] MEDS: CLINDAMYCIN 900 MG/50 ML-D5W 900 MG/50 ML PIGGYBACK 100 MG IVPB ×3 (01:30→16:55)
[2023-08-03 01:31] LABS: C Reactive Protein* 13.8 mg/dL (0.5-1.0)
[2023-08-03 01:33] LABS: Procalcitonin* 3.39 ng/mL (<0.50)
--- NOTE | 2023-08-03 03:10 | W.PM.THH&P_ITS ---
Telehealth- H&P: HPI History of Present Illness Date Seen: 08/03/23 Chief complaint: Open wound-infected/painful/red-L foot Narrative: Rashad Stern is seen as an Interactive Telehealth visit. Rashad Stern is a 43 year old male who presented to the emergency room with redness in his left lower extremity along with ongoing warmth and swelling. 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 Rashad states that he normally has swelling in his legs and he was told just to put them up above the level of his heart and normally the swelling would go down. He states that today he started having some pain in his leg and when he put his leg up, the swelling did not go down and when he removed his pants to look at his leg he noticed that it had become quite reddened. He does have a history of DVT and went off his anticoagulation approximately 2 years ago. He states that he went off his anticoagulation because he was unable to drive 80 miles roundtrip to get his INR done. He also states that he had bee n going to the wound center to care for his ulcer under his plantar surface of his amputated great toe, but he did receive a bill and states that he could not afford it and quit going to the wound care clinic. He states that the wound has been more reddened and some minor drainage was noted. With these symptoms, he presented to the emergency room where he was indeed diagnosed with an acute cellulitis as well as possible DVT. Unfortunately the ultrasound reading and reports are not able to be done at this time. He is currently being admitted to the medical service for further evaluation of his left lower extremity cellulitis and possible DVT. At the time I am seeing Rashad, he does confirm the above history. He states that he is having a fair amount of pain in his left lower extremity. He has not had any fever or chills that he knows of. He has had a racing heart. He otherwise denies any other acute complaints or problems at the time I am seeing him. Review of Systems Status of ROS: Reports: 10 or more systems reviewed and unremarkable except as noted in History and below Const: Denies: fever or chills Cardio: Denies: chest pain or shortness of breath with exertion Resp: Denies: shortness of breath Musculo: Reports: extremity pain and extremity swelling PFSH PFSH Social History What is your current living situation?: I presently have a place to live Problems where you live: no known problems Problems where you live details: N/A In the past 12 months, utilities in danger of being shut off: no In past 12 months, lack of transportation kept you from medical appts, meetings, work, or getting things needed for daily living: no In the past 12 mos, have been you worried that your food would run out before you had money to buy more?: never true In the past 12 mos, the food you bought just didn't last and you didn't have money to buy more?: never true Highest level of school completed/degree received: some college, no degree Smoking Status: Current every day smoker What tobacco products do you use: cigarettes Smoking packs per day: 0.5 Smoking cigarettes per day: 10.0 Years smoked: 25 Smoking pack-years: 12.50 How often do you have a drink containing alcohol: never How often do you have six or more drinks on one occasion: Never AUDIT-C Alcohol total score: 0 Non-prescribed substance use: denies use Caffeine: Yes (2 energy drinks daily) How often does anyone, including family, friends and others, physically hurt you : never How often does anyone, including family, friends and others, insult or talk down to you: never How often does anyone, including family, friends and others, threaten you with harm: never How often does anyone, including family, friends and others, scream or curse at you: never service: No Meds Home Medications and Allergies Home Medications Medication Instructions Recorded Confirmed Type amlodipine 10 mg tablet 10 mg PO DAILY 08/03/23 08/03/23 History buprenorphine 8 mg-naloxone 2 mg 20 mg sublingual DAILY 08/03/23 08/03/23 History sublingual film finasteride 5 mg tablet 5 mg PO DAILY 08/03/23 08/03/23 History folic acid 20 mg capsule 20 mg PO DAILY 08/03/23 08/03/23 History lisinopril 20 mg tablet 20 mg PO DAILY 08/03/23 08/03/23 History methotrexate sodium 2.5 mg tablet 15 mg PO Q7D 08/03/23 08/03/23 History Allergies Allergy/AdvReac Type Severity Reaction Status Date / Time acetaminophen [From Percocet] Allergy Intermediate Hives Verified 08/03/23 00:10 oxycodone [From Percocet] Allergy Intermediate Hives Verified 08/03/23 00:10 Exam Narrative Exam Narrative: Physical Exam GENERAL: ?vital signs reviewed, well developed and nourished, in no distress HEENT: pupils are equal round and reactive to light, extraocular movements are grossly within normal limits and oral mucosa is moist. Very poor dentition is noted. NECK: Supple without lymphadenopathy or thyromegaly according to nursing staff examination observation HEART: Tachycardic rate with a regular rhythm without any rubs, murmurs, or gallops. LUNGS: Clear to auscultation bilaterally with good air movement throughout ABDOMEN: Observation from nurse assisted exam, abdomen appears soft, nontender, and nondistended with Positive bowel sounds noted. EXTREMITIES: He does have obvious erythema about the left lower extremity extending from the dorsal aspect of his foot up to just below his left patella. He does have a slightly draining ulceration on the dorsal aspect of the MP area of his great toe. His great toe is missing from previous amputation. Right lower extremity does have some psoriasis SKIN:? Observed warm and dry with color normal Const Vital Signs, click to edit/add: Vital Signs - 24 hr 08/03/23 00:14 08/03/23 00:30 08/03/23 02:14 Temperature 98 F 98 F Pulse Rate [Pulse Oximeter] 119 H 99 Pulse Rate [Right Pulse Oximeter] Respiratory Rate 16 16 Blood Pressure [Right Upper Arm] 147/94 H 135/88 Pulse Oximetry 96 96 96 Oxygen Delivery Method Room Air Room Air 08/03/23 02:21 08/03/23 02:30 Temperature 98 F 98.3 F Pulse Rate [Pulse Oximeter] 99 Pulse Rate [Right Pulse Oximeter] 102 H Respiratory Rate 16 16 Blood Pressure [Right Upper Arm] 135/88 Pulse Oximetry 98 Oxygen Delivery Method Room Air Documenting provider has reviewed patient's vital signs: yes Hospitalist - H&P: Result Labs Labs: Short CBC 08/03/23 Range/Units 00:40 WBC 18.54 H (4.50-11.00) K/uL Hgb 12.9 L (13.5-17.5) gm/dL Hct 39.2 (37.0-53.0) % Plt Count 305 (140-440) K/uL BMP 08/03/23 00:40 Sodium 131 L Potassium 3.9 Chloride 100 Carbon Dioxide 21 BUN 24 Creatinine 1.7 H Glucose 106 Calcium 8.5 Liver Function 08/03/23 Range/Units 00:40 Total Bilirubin 0.7 (0.1-1.5) mg/dL AST 37 H (12-35) U/L ALT 42 (4-50) U/L Alkaline Phosphatase 140 (40-150) U/L Albumin 3.9 (3.3-5.0) g/dL Assessment and Plan Assessment and plan (1) Cellulitis of left leg: Status: Acute Plan Assessment: 1. Pain with erythema and swelling of the left lower extremity 2. Erythema extending from the dorsal aspect of the left foot up to just below the patella outlined and consistent with acute left lower extremity cellulitis 3. Increased lower extremity edema with history of DVT?currently cannot rule out DVT due to inability to read ultrasound 4. Chronic foot ulcer currently with drainage and possible infection as nidus to #2 above 5. Previous DVT with patient discontinuing medication due to inconvenience of INR draws previously on Coumadin?question current left lower extremity DVT 6. Hypertension 7. Chronic lower extremity pain 8. Psoriasis on methotrexate 9. Possible history of lupus 10. Volume depletion/dehydration 11. Hyponatremia most likely hypovolemic hyponatremia 12. Elevated creatinine with history of chronic kidney disease?likely chronic kidney disease stage III with question of baseline Plan: At this time Rashad has been admitted to the medical service. I will continue the IV clindamycin that has been started in the emergency room to treat his lower extremity cellulitis. I will also treat with Lovenox at 1 mg/kg twice daily for treatment of a possible DVT and will ask radiology to read the ultrasound that was done this evening to see if there is actually a DVT present. If there is no DVT present, would decrease the Lovenox dosing to DVT prophylaxis dosing. I will supply some oral and IV pain medications for his lower extremity pain that he is currently having with his cellulitis and edema. Would suggest possible evaluation by wound clinic or even possible surgery consult in the a.m. to further evaluate and offer treatment suggestions for his chronic foot wound. If this does look to be chronically nonhealing, would possibly suggest I&D or even possible further amputation. I will obviously hold the methotrexate currently with his infection. I will give some gentle hydration as I do believe he does have some volume depletion. With hydration, I do believe his renal insufficiency should improve as well as his hyponatremia. Will follow-up with chemistries and hematology labs for the a.m. I have discussed this plan with Rashad and he is agreeable to proceed. Will continue to follow closely from medical standpoint. I have discussed CODE STATUS with Rashad and he does wish to be a full code. Telehealth: Statement Statement Telehealth Visit: Today's History and Physical is provided via interactive telehealth by Matt Bridges MD.? Patient is located at [facility].? Provider is located at [facility].? Nursing staff assisted with the patient's exam. The visit being done today meets criteria for a telehealth visit and the patient or patient?s parent/guardian is aware the visit is a telehealth visit. Camera Start Time: 02:43 Camera End Time: 03:00
[2023-08-03] MEDS: 0.9 % SODIUM CHLORIDE 1000 ml 1,000 ML 125 ML IV (03:14)
[2023-08-03] MEDS: HYDROmorphone 0.5 mg/0.5 ml inj IVP (03:15)
[2023-08-03] MEDS: ENOXAPARIN 100 MG/ML INJ SUBCUT ×2 (03:52→15:37)
--- NOTE | 2023-08-03 07:33 | PC.NURSE ---
End of shift note: Pt admitted to Med/surg unit from ED at 0206 today for infected L foot wound due to previous amputation of L great toe. He is noted to be alert & oriented x 4 and able to make needs known. Pt up independently and has been continent of bladder using urinal. Pt reported pain to LLE ?9/10? when asked with PRN IV Dilaudid administered which was effective upon followup per pt report. NS running at 125 mL/hr per order. Pt noted to be somewhat short-tempered upon admission to med/surg due to standard questions being asked. Staff reassured pt that questions are standard with all admissions. Wound to bottom of left has been XI with no visible drainage observed. Lung sounds clear to all lobes bilaterally though he does report chronic nonproductive cough due to years of smoking cigarettes. Pt has been afebrile this shift. L foot xray and venous doppler results pending.
[2023-08-03 07:47] LABS: Chloride* 106 mmol/L (96-114); Potassium* 3.9 mmol/L (3.6-5.1); Sodium* 133 mmol/L (135-149)
[2023-08-03 07:50] LABS: Anion Gap 5 mEq/L (7-15); Blood Urea Nitrogen* 23 mg/dL (5-24); Carbon Dioxide* 22 mmol/L (20-32); Creatinine* 1.5 mg/dL (0.5-1.5); Est. Creatinine Clearance* 76.35; Estimated Glomerular Filt Rate 58 ml/min
[2023-08-03 07:51] LABS: Calcium* 8.3 mg/dL (8.4-10.6); Glucose* 100 mg/dL (60-115)
[2023-08-03 08:14] LABS: Basophils Percent Auto 0.2 % (0.0-3.0); Eosinophils Percent Auto 0.6 % (0.0-7.0); Hematocrit 35.6 % (37.0-53.0); Hemoglobin* 11.8 gm/dL (13.5-17.5); Lymphocytes Percent Auto 8.8 % (20-44); Mean Corpuscular HGB Conc 33 gm/dL (32-36); Mean Corpuscular Hemoglobin 29 pg (26-34); Mean Corpuscular Volume 87 fL (80-100); Monocytes Percent Auto 7.4 % (0.0-11.0); Platelet Count* 306 K/uL (140-440); RDW Coefficient of Variation % 18.4 % (11.5-15.5); Red Blood Count 4.08 m/uL (4.30-5.90)
[2023-08-03 08:18] LABS: Slide Review Reflex No
--- NOTE | 2023-08-03 09:09 | REH.PT ---
I spoke with patient about PT orders. He stated he walks Just fine and didn't want to walk while his foot is uncovered. Pt. declining PT services. Skilled PT not appropriate/needed at this time.
[2023-08-03] MEDS: AMLODIPINE 10 MG TABLET PO (09:17)
--- NOTE | 2023-08-03 09:39 | MR_ITS ---
[address] [address] Phone:?[phone] Fax:?[phone] Referring Physician Information: [address] [facility] [address] Phone:?[phone] Fax:?[phone] Patient:?Rashad Stern D.O.B:?1980 Sex:?Male Phone:?[phone] [facility] MRN:?[id number] Exam Date:?08/03/2023 EXAM: MRI OF THE LEFT FOREFOOT CLINICAL INFORMATION: The patient is a 43-year-old with left foot pain. Evaluate for infected wound. The patient has a history of osteomyelitis. PRIOR SURGERY: The patient is status post great toe amputation. COMPARISON STUDIES: Comparison is made to prior radiographs dated 08/03/2023. TECHNICAL INFORMATION: Imaging was performed on a high-field, 1.5 Taina MR scanner. Coronal T1 and coronal STIR imaging of the left forefoot was produced in addition to sagittal T1 and sagittal STIR imaging. Axial T1 and axial STIR images were also produced. FINDINGS: The patient is status post amputation of the great toe at the level of the first MTP joint. There is mixed signal intensity within the soft tissues along the distal and plantar aspects of the amputation site, with a suspected area of ulceration or wound seen on coronal series 4 image 12 and on sagittal series 8 image 9. The area of signal change and swelling in the area measures approximately 42 mm in mediolateral dimension, 41 mm in craniocaudal dimension, and 41 mm in anteroposterior dimension. The findings are consistent with a broad-based area of phlegmon in this location. There is fluid signal intensity noted along the distal articular surfaces of the first metatarsal head and neck seen on axial series 5 image 17, coronal series 4 image 18, and on sagittal series 8 image 9. An abscess along the articular surfaces of the first metatarsal head and neck in this region cannot be excluded. There is increased signal intensity involving the first metatarsal head and neck seen on axial series 5 image 16, sagittal series 8 image 8 and on coronal series 4 image 18. Osteomyelitis of the first metatarsal head and neck cannot be excluded on the basis of this appearance. The phalanges of the second through fifth toes are within normal limits. There is marrow edema within the fifth metatarsal shaft, in keeping with stress change. No well-defined fracture or additional bony destruction of the metatarsal region can be seen. The visualized TMT joints are within normal limits. No additional areas of abnormal fluid collection about the forefoot can be seen. No definite injuries to the flexor or extensor tendons of the forefoot can be seen. No definite evidence for well-defined neurovascular abnormality can be seen. CONCLUSION: 1. Soft tissue ulceration or wound along the plantar aspect of the great toe. There are changes of suspected phlegmon surrounding the first metatarsal head with fluid signal intensity seen along the distal articular surfaces of the first metatarsal head and neck. Abscess in this region cannot be excluded. Questionable changes of osteomyelitis involving the first metatarsal head and neck can be seen. 2. Status post amputation of the great toe at the level of the first MTP joint. 3. Stress changes involving the fifth metatarsal shaft. 4. No definite neurovascular abnormalities are identified. AEC Electronically signed on 08/03/2023 2:55:00 PM by Saturnino Mccann M.D.
--- NOTE | 2023-08-03 13:57 | P.IMCN_ITS ---
Date of Consult Consult date: 08/03/23 Primary Care Provider: Not a Local Provider Consult Narrative Narrative: Rashad Stern is a 43 year old male Review of Systems Narrative: 43 year old with Lupus since age 15 pres ented to the ED yesterday and was admitted with cellulitis of the left foot and lower leg. The patient has had an ulcer on the plantar surface of the 1st MTP for at least 6 months. He was referred to a wound clinic in [place], [place] 6 months ago. The patient lives in [place]. The patient states his insurance does not cover him to come to the [facility] The patient's insurance is Medicare part A and part B related to disability and general Medical Assistance. The patient gets the care for his Lupus through the [facility]. He has been following with them since his diagnosis. The patient is angry and frustrated and doesn't want to repeat his health histo ry again. Review of the record did not reveal what day symptoms of cellulitis started, but sounds like it was recently. 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 He has had cataract surgery. He reported to have tobacco dependence. *The patient told me today that he had part of the left great toe amputated, but the surgery was, Screwed up, leading to a second procedure. With the second procedure, the patient states he specified he wanted avoidance of a big scar/scar tissue overlying the plantar surface of the 1st MTP joint - but, they didn't listen to me, and he reports having a big callus/scar in this area. ROS Patient will not tolerate at this time. Family Hx: Unavailable Social Hx: Is being visited by his significant other, a woman, who arrived with a toddler. Tobacco: 1/2 PPD. [facility] Medical History (Updated 08/03/23 @ 14:27 by Eneida Vivar MD) Lupus ?M32.9 - Systemic lupus erythematosus, unspecified (ICD-10) Psoriasis ?L40.9 - Psoriasis, unspecified (ICD-10) Social History What is your current living situation?: I presently have a place to live Problems where you live: no known problems Problems where you live details: N/A In the past 12 months, utilities in danger of being shut off: no In past 12 months, lack of transportation kept you from medical appts, meetings, work, or getting things needed for daily living: no In the past 12 mos, have been you worried that your food would run out before you had money to buy more?: never true In the past 12 mos, the food you bought just didn't last and you didn't have money to buy more?: never true Highest level of school completed/degree received: some college, no degree Smoking Status: Current every day smoker What tobacco products do you use: cigarettes Smoking packs per day: 0.5 Smoking cigarettes per day: 10.0 Years smoked: 25 Smoking pack-years: 12.50 How often do you have a drink containing alcohol: never How often do you have six or more drinks on one occasion: Never AUDIT-C Alcohol total score: 0 Non-prescribed substance use: denies use Caffeine: Yes (2 energy drinks daily) How often does anyone, including family, friends and others, physically hurt you : never How often does anyone, including family, friends and others, insult or talk down to you: never How often does anyone, including family, friends and others, threaten you with harm: never How often does anyone, including family, friends and others, scream or curse at you: never service: No Meds Home Medications and Allergies Home Medications Medication Instructions Recorded Confirmed Type amlodipine 10 mg tablet 10 mg PO DAILY 08/03/23 08/03/23 History buprenorphine 8 mg-naloxone 2 mg 2 film sublingual DAILY 08/03/23 08/03/23 History sublingual film finasteride 5 mg tablet 5 mg PO DAILY 08/03/23 08/03/23 History folic acid 20 mg capsule 20 mg PO DAILY 08/03/23 08/03/23 History lisinopril 20 mg tablet 20 mg PO DAILY 08/03/23 08/03/23 History methotrexate sodium 2.5 mg tablet 15 mg PO Q7D 08/03/23 08/03/23 History Allergies Allergy/AdvReac Type Severity Reaction Status Date / Time acetaminophen [From Percocet] Allergy Intermediate Hives Verified 08/03/23 00:10 oxycodone [From Percocet] Allergy Intermediate Hives Verified 08/03/23 00:10 Exam Narrative: Exam Narrative: In general, frustrated, but no other acute distress - except with palpation from the knee down causes pain. HEENT: Normocephalic, atraumatic, conjunctiva and sclera are clear. External ears, nose and mouth are normal in appearance. MS: Intact and apparent painless ROM of the spine, both upper and right lower extremity. Respiratory: No respiratory distress. No use of accessory muscles of respiration. No tachypnea. Skin: somewhat greyish discoloration - could be lighting in hospital room, could be tobacco use, could be kidney disease. Neurologic: A & O X 3; facial muscles move symmetrically, hears a normal spoken voice, vision grossly intact, speaks clearly, handles his own secretions without difficulty. Moves arms equally well. Decreased movement of the left lower leg compared to right due to cellulitis and ulcer. No truncal ataxia, no abnormal nystagmus. Psychiatric: no evidence of dementia or inability to make his own decisions. Patient expresses anger and frustration repeatedly. Left lower extremity: Swelling and redness from the foot to just below the knee - marker line of progression of cellulitis dated 11 pm noted - no significant change from last night. Good and equal pedal pulses 3+ edema - patient cannot tolerate pressure to determine if pitting Mild palpation of this lower leg is painful for the patient Ulcer on the plantar surface of the first MTP joint measures 3.0 X 2.8 cm, estimated depth 0.2 cm. There is serosanginous discharge. Surgical absence of the left great toe large callus formation, plantar left first MTP Callus formation heel: patient states is walking on heel and this is starting to hurt. The heel soft tissue is thin and pressure is tender. Foot x-ray report of 08/02/23: IMPRESSION: 1. Status post interval amputation at th e 1st MTP joint. 2. Moderate to severe soft tissue swelli ng involving the amputation site, with possible subtle osteopenia of the metatarsal head medially, without definite osseous erosions identified. If there is continue clinical suspicion for acute osteomyelitis, consider further evaluation with MR or a nuclear medicine triple phase bone scan. 3. No acute fractures or dislocation. Dictated by Alexis Lenz MD @ 08/03/2023 3:11:12 AM (Electronic Signature) MRI left foot 08/03/23 - results pending. Const: Vital Signs, click to edit/add: Vital Signs - 24 hr 08/03/23 00:14 08/03/23 00:30 08/03/23 02:14 Temperature 36.6 C 36.6 C Pulse Rate [Pulse Oximeter] 119 H 99 Pulse Rate [Right Pulse Oximeter] Respiratory Rate 16 16 Blood Pressure [Ri ght Arm] Blood Pressure [Ri ght Upper Arm] 147/94 H 135/88 Pulse Oximetry 96 96 96 Oxygen Delivery Me thod Room Air Room Air 08/03/23 02:21 08/03/23 02:30 08/03/23 02:30 Temperature 36.6 C 36.8 C 36.8 C Pulse Rate [Pulse Oximeter] 99 Pulse Rate [Right Pulse Oximeter] 102 H 102 H Respiratory Rate 16 16 16 Blood Pressure [Ri ght Arm] 159/98 H Blood Pressure [Ri ght Upper Arm] 135/88 Pulse Oximetry 98 98 Oxygen Delivery Me thod Room Air Room Air 08/03/23 02:30 08/03/23 07:45 08/03/23 07:45 Temperature 36.7 C Pulse Rate [Pulse Oximeter] Pulse Rate [Right Pulse Oximeter] 96 96 Respiratory Rate 16 16 16 Blood Pressure [Ri ght Arm] 181/114 H Blood Pressure [Ri ght Upper Arm] Pulse Oximetry 98 93 Oxygen Delivery Me thod Room Air Room Air Labs Labs: Short CBC 08/03/23 08/03/23 Range/Units 00:40 07:00 WBC 18.54 H 16.30 H (4.50-11.00) K/uL Hgb 12.9 L 11.8 L (13.5-17.5) gm/dL Hct 39.2 35.6 L (37.0-53.0) % Plt Count 305 306 (140-440) K/uL BMP 08/03/23 08/03/23 00:40 07:00 Sodium 131 L 133 L Potassium 3.9 3.9 Chloride 100 106 Carbon Dioxide 21 22 BUN 24 23 Creatinine 1.7 H 1.5 Glucose 106 100 Calcium 8.5 8.3 L Liver Function 08/03/23 Range/Units 00:40 Total Bilirubin 0.7 (0.1-1.5) mg/dL AST 37 H (12-35) U/L ALT 42 (4-50) U/L Alkaline Phosphatase 140 (40-150) U/L Albumin 3.9 (3.3-5.0) g/dL Assessment and Plan Assessment and plan (1) Cellulitis of left leg: Status: Acute (2) Chronic foot ulcer: Status: Acute Assessment and Plan: 1. Wound care at this time: A) Medihoney applied to wound B) Cover with Xeroform C) Then Hydrofera Blue Classic (this will absorb drainage) D) Hold all in place with Kerlix 2. Also use Kerlix (or something similar) to bulk up the area of the arch of the foot - goal is to get patient to walk on heel and arch, not just arch. 3. Cast or Post-op shoe to walk in. 4. Await MR results - I will check on this tomorrow. 5. Re: cellulitis, agree with clindamycin 6. Wound culture, if not already done, could hand turner to be helpful. 7. Dressing changes are every other day unless there is a need to change sooner: too wet, need to assess wound, dressing came off, showering, etc. Wound care supplies should be available from [employer] as these are products we use in the Wound Care Center. Note: 60 minutes spent: seeing patient, evaluating wound, reviewing chart, reviewing supplies available and how to use on Medical Unit, reviewing insurance to address patient's concern about insurance coverage of wound care/wound consult, coordination of care, and other items. (3) Psoriasis: Status: Acute (4) Lupus: Status: Acute
--- NOTE | 2023-08-03 14:42 | PC.NURSE ---
Addendum entered by Erasto Huff RN 08/04/23 08:52: pt was swearing people don't know what the fuck they are doing. Original Note: End of shift. pt has been mad and upset today. he has been complaining about lab, dietary and nursing. he doesn't like people bothering him. and does not think we are good at our job. he does question almost everything we do, pt has a Left infected foot wound. previous amputation of L great toe. He is alert & oriented x 4. Pt up independently and is using urinal. pain to LLE. was talking to pt about meds. NS running at 125 mL/hr per order. Wound to bottom of left was covered with a Mepilex. MRI done.
--- NOTE | 2023-08-03 15:16 | P.IMPN_ITS ---
Progress Note: A&P Assessment and plan (1) Cellulitis of left leg: Problem details: -wound culture obtained per hour property specialist. -continue with IV clindamycin for now. Status: Acute (2) Chronic foot ulcer: Problem details: -x-ray of foot does not demonstrate obvious osteomyelitis. -check MRI of the foot. Status: Acute (3) Lupus: Problem details: -hold off on methotrexate while in hospital. Status: Acute (4) Psoriasis: Problem details: -hold off on methotrexate while in hospital. Status: Acute (5) Diabetic ulcer of toe of left foot associated with type 2 diabetes mellitus: Problem details: -will check hemoglobin A1c. -recommend fingerstick blood glucose and sliding scale insulin while in hospital. Status: Acute Plan 1. Reviewed impression with patient 2. Answered his questions 3. Continue the supportive efforts 4. Continue with current efforts as specified above for now. 5. Wound care consultation. Time Spent With Patient Total time spent: 40 minutes Subjective Date Seen: 08/03/23 Interval history: History of present illness per admission history and physical: ?Rashad Stern is seen as an Interactive Telehealth visit. Rashad Stern is a 43 year old male who presented to the emergency room with redness in his left lower extremity along with ongoing warmth and swelling. 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 Rashad states that he normally has swelling in his legs and he was told just to put them up above the level of his heart and normally the swelling would go down. He states that today he started having some pain in his leg and when he put his leg up, the swelling did not go down and when he removed his pants to look at his leg he noticed that it had become quite reddened. He does have a history of DVT and went off his anticoagulation approximately 2 years ago. He states that he went off his anticoagulation because he was unable to drive 80 miles roundtrip to get his INR done. He also states that he had been going to the wound center to care for his ulcer under his plantar surface of his amputated great toe, but he did receive a bill and states that he could not afford it and quit going to the wound care clinic. He states that the wound has been more reddened and some minor drainage was noted. With these symptoms, he presented to the emergency room where he was indeed diagnosed with an acute cellulitis as well as possible DVT. Unfortunately the ultrasound reading and reports are not able to be done at this time. He is currently being admitted to the medical service for further evaluation of his left lower extremity cellulitis and possible DVT. At the time I am seeing Rashad, he does confirm the above history. He states that he is having a fair amount of pain in his left lower extremity. He has not had any fever or chills that he knows of. He has had a racing heart. He otherwise denies any other acute complaints or problems at the time I am seeing him.? Hospital day 1. Patient has known chronic lower extremity pain. Pain not worse or better. Swelling, erythema, about the same as when he 1st arrived. No fevers in hospital. Tells me he is angry and frustrated about healthcare providers asking him questions about himself, making statements such as they do not know what they are doing. Exam Narrative: Exam Narrative: Examined patient in his hospital room. Appears in no acute distress. Vision and hearing are grossly normal. Frustrated. Angry. Not always cooperative. Sometimes cooperative. Alert and oriented to self, place, time, situation. Lungs clear to auscultation. Heart tones with regular rhythm. Abdomen with active bowel sounds, soft. Left lower extremity with chronic hemosiderin deposition. Erythema warmth and tenderness to just below the knee. Foot is swollen. First metatarsal amputation. Sub 1st met ulcer. Const: Vital Signs, click to edit/add: Vital Signs - 24 hr 08/03/23 00:14 08/03/23 00:30 08/03/23 02:14 Temperature 98 F 98 F Pulse Rate [Pulse Oximeter] 119 H 99 Pulse Rate [Right Pulse Oximeter] Respiratory Rate 16 16 Blood Pressure [Ri ght Arm] Blood Pressure [Ri ght Upper Arm] 147/94 H 135/88 Pulse Oximetry 96 96 96 Oxygen Delivery Me thod Room Air Room Air 08/03/23 02:21 08/03/23 02:30 08/03/23 02:30 Temperature 98 F 98.3 F 98.3 F Pulse Rate [Pulse Oximeter] 99 Pulse Rate [Right Pulse Oximeter] 102 H 102 H Respiratory Rate 16 16 16 Blood Pressure [Ri ght Arm] 159/98 H Blood Pressure [Ri ght Upper Arm] 135/88 Pulse Oximetry 98 98 Oxygen Delivery Me thod Room Air Room Air 08/03/23 02:30 08/03/23 07:45 08/03/23 07:45 Temperature 98.0 F Pulse Rate [Pulse Oximeter] Pulse Rate [Right Pulse Oximeter] 96 96 Respiratory Rate 16 16 16 Blood Pressure [Ri ght Arm] 181/114 H Blood Pressure [Ri ght Upper Arm] Pulse Oximetry 98 93 Oxygen Delivery Me thod Room Air Room Air 08/03/23 11:15 Temperature 98.4 F Pulse Rate [Pulse Oximeter] Pulse Rate [Right Pulse Oximeter] 94 Respiratory Rate 16 Blood Pressure [Ri ght Arm] 165/104 H Blood Pressure [Ri ght Upper Arm] Pulse Oximetry 94 Oxygen Delivery Me thod Room Air Labs Labs: Laboratory Results - last 24 hr 08/03/23 08/03/23 08/03/23 00:40 00:57 07:00 WBC 18.54 H 16.30 H RBC 4.48 4.08 L Hgb 12.9 L 11.8 L Hct 39.2 35.6 L MCV 88 87 MCH 29 29 MCHC 33 33 RDW Coeff of Francia 18.5 H 18.4 H Plt Count 305 306 Neut % (Auto) 85.5 H 82.0 H Lymph % (Auto) 6.0 L 8.8 L [place] % (Auto) 7.3 7.4 Eos % (Auto) 0.2 0.6 Baso % (Auto) 0.1 0.2 Neut # (Auto) 15.90 H 13.40 H Lymph # (Auto) 1.10 1.40 [place] # (Auto) 1.40 H 1.20 H Eos # (Auto) 0.00 0.10 Baso # (Auto) 0.00 0.00 Abs Immat Gran (auto) 0.20 0.20 Imm/Tot Granulo (auto) 0.9 1.0 INR 0.91 D-Dimer Quant (PE/DVT) 1.45 H Sodium 131 L 133 L Potassium 3.9 3.9 Chloride 100 106 Carbon Dioxide 21 22 Anion Gap 10 5 L BUN 24 23 Creatinine 1.7 H 1.5 Estimated Creat Clear 67.37 76.35 Estimated GFR 50 58 Glucose 106 100 Lactate 0.7 Calcium 8.5 8.3 L Total Bilirubin 0.7 AST 37 H ALT 42 Alkaline Phosphatase 140 C-Reactive Protein 13.8 H Total Protein 7.2 Albumin 3.9 Procalcitonin 3.39 H Lab Acknowledgement Test Added
[2023-08-03] MEDS: HYDROmorphone 2 MG TABLET PO ×2 (16:56→22:37)
[2023-08-03] MEDS: SODIUM CHLORIDE 0.9 % (FLUSH) 10 ML SYRINGE 5 ML IVF ×2 (16:56→20:09)
--- NOTE | 2023-08-03 23:01 | PC.NURSE ---
Shift note ([id number]): The pt has been irritable and was c/o of no body listen to me. The specifications writer took a time to listen to the pt's concerns and the pt stated thanking for listening to him. The left foot plantar wound dressing was completed as ordered; The wound was under the left big great toe; the pt tolerated the dressing change; was premedicated with PRN pain medication. The boot was also given to the pt; he verbalize to use when he is out of the bed. Redness to left lower leg has been remained in the outlined margin.; warm to touch; encouraged the pt to elevated the left leg. Tolerating IV ABX without any issues.
[2023-08-04 01:55] VITALS: BP 147/100; PULSE 104; RESP 18; TEMP 36.8; O2SAT 97
[2023-08-04] MEDS: CLINDAMYCIN 900 MG/50 ML-D5W 900 MG/50 ML PIGGYBACK 100 MG IVPB ×2 (02:00→09:02)
[2023-08-04 03:22] LABS: Lactate* 0.8 mmol/L (0.5-1.9)
[2023-08-04 03:26] LABS: Hematocrit 36.6 % (37.0-53.0); Hemoglobin* 11.9 gm/dL (13.5-17.5); Mean Corpuscular HGB Conc 33 gm/dL (32-36); Mean Corpuscular Hemoglobin 29 pg (26-34); Mean Corpuscular Volume 88 fL (80-100); Platelet Count* 293 K/uL (140-440); Red Blood Count 4.17 m/uL (4.30-5.90); White Blood Count* 13.53 K/uL (4.50-11.00)
[2023-08-04] MEDS: ENOXAPARIN 100 MG/ML INJ SUBCUT (03:26)
[2023-08-04 03:27] LABS: Slide Review Reflex No
[2023-08-04 03:38] LABS: Chloride* 105 mmol/L (96-114); Sodium* 134 mmol/L (135-149)
[2023-08-04 03:40] VITALS: BP 175/101; PULSE 88; RESP 18; TEMP 36.8; O2SAT 95
[2023-08-04 03:41] LABS: Creatinine* 1.3 mg/dL (0.5-1.5); Estimated Glomerular Filt Rate 69 ml/min
[2023-08-04 03:42] LABS: Anion Gap 5 mEq/L (7-15); Blood Urea Nitrogen* 18 mg/dL (5-24); Calcium* 8.2 mg/dL (8.4-10.6); Carbon Dioxide* 24 mmol/L (20-32); Glucose* 94 mg/dL (60-115); Magnesium* 2.1 mg/dL (1.5-2.6); Phosphorus* 3.6 mg/dL (2.5-4.5)
[2023-08-04 04:00] LABS: Hemoglobin A1C* 5.4 % (0-5.6)
[2023-08-04] MEDS: HYDROmorphone 2 MG TABLET PO (05:25)
--- NOTE | 2023-08-04 08:07 | PC.NURSE ---
Pt alert and oriented x3. Afebrile. Pt reports 7/10 pain left leg, managed with PRN hydrocodone. Pt's left foot dressing is CDI. Pt reported feeling burning at IV site in left hand, IV removed with catheter intact. New IV started in right forarm, 7 attempts made in total with attempts being made by several different nurses and refrigeration houseman. Pt reported No one is listening to me. I know my body and needs. Pt reported during IV insertion a warm blanket should be used and first attempt blanket was not used. RN grabbed warm blanket for next attempts. Pt reported to nurse he felt his home medication suboxone was not addressed and had questions about his home medications. RN told pt that she would let on coming RN know and MD. RN told on coming RN about pt's questions and updating MD on pt concerns. Pt slept intermittently throughout night.
[2023-08-04 08:54] VITALS: BP 174/107; PULSE 99; RESP 16; TEMP 36.8; O2SAT 96
[2023-08-04] MEDS: AMLODIPINE 10 MG TABLET PO (08:55)
[2023-08-04] MEDS: SODIUM CHLORIDE 0.9 % (FLUSH) 10 ML SYRINGE 5 ML IVF (08:56)
[2023-08-04] MEDS: BUPRENORPHINE-NALOX 8-2MG FILM 2 EACH SUBLINGUAL (08:56)
[2023-08-04] MEDS: lisinopriL 20 MG TABLET PO (09:20)
[2023-08-04] MEDS: FOLIC ACID 1 MG TABLET PO (09:20)
[2023-08-04] MEDS: FINASTERIDE 5 MG TABLET PO (09:21)
--- NOTE | 2023-08-04 14:56 | P.DS_ITS ---
DS: Providers Provider Date Seen: 08/04/23 Date of admission: 08/03/23 08:54 Primary care physician: Not a Local Provider Admitting Clinician: Grace Vidal MD Consults: 08/03/23 02:59 Consult to Heating And Cooling Systems Engineer [CONS] Routine Comment: Reason for Consult:: Discharge Planning Needs 08/03/23 11:53 Consult to Physician [CONS] Routine Comment: Consulting Provider[facility] Has provider been notified: No 08/04/23 09:12 Consult to Physician [CONS] Routine Comment: Consulting Provider: Tru Oritz Has provider been notified: Yes Attending Physician on discharge: Frank Lion MD Date of Discharge: 08/04/23 DS: Diagnosis Discharge Diagnosis (1) Chronic foot ulcer: Status: Acute Problem details: -x-ray of foot 08/03/2023 does not demonstrate obvious osteomyelitis. -MRI of the foot 08/03/2023 demonstrates the following: Suspected phlegmon ... First metatarsal head and neck. Questionable changes of osteomyelitis.... -I arranged for Podiatry to see the patient in consultation in regard to these findings, and consider OR debridement. -patient left against medical advice on 08/04/2023 before Podiatry could see the patient in consultation. (2) Cellulitis of left leg: Status: Acute Problem details: -wound culture obtained per hour applied behavior specialist 08/03/2023 - results are still pending. -continue with IV clindamycin for now. -patient left against medical advice 08/04/2023. (3) Psoriasis: Status: Acute Problem details: -he tells me he started methotrexate last week due to hair loss associated with psoriasis. Concurrently he started on folate and finasteride, the finasteride being used to promote hair growth. -hold off on methotrexate while in hospital due to infected ulcer and osteomyelitis. -patient angry about us recommending that the methotrexate be held while he is receiving antibiotics in-hospital. (4) Lupus: Status: Acute Problem details: -he has not received treatment for lupus for a number of years. -he tells me he has had lupus since he was 15 years of age. (5) Left against medical advice: Status: Acute Problem details: -patient indicated he does not trust healthcare he receives at [facility]. -He asks that we help transfer him to [facility] in the [facility]. I called [facility] for a direct admission at [phone]. They are currently only accepting major trauma patients, they are otherwise full and not able to take this patient in transfer at this time. I conveyed this information to the patient. He agreed to continue care at [facility] while trying to arrange for transfer to [facility]. -I explained to him that if he leaves against medical advice that likely his insurance company will not cover his hospital stay at [facility]. Despite our efforts to support his desires, within a relatively short period of time he changed his mind and left [facility] against medical advice. -We urged him to immediately seek out medical attention in a hospital system that could meet all of his needs, including Infectious Disease, Podiatry, possibly vascular surgery and advanced wound healing. (6) Chronic pain: Status: Acute Problem details: -on chronic buprenorphine/naloxone 8/2 mg film, 2 films daily DS: Summary Hospital Course Hospital Course: Rashad Stern is seen as an Interactive Telehealth visit. Rashad Stern is a 43 year old male who presented to the emergency room with redness in his left lower extremity along with ongoing warmth and swelling. 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 Rashad states that he normally has swelling in his legs and he was told just to put them up above the level of his heart and normally the swelling would go down. He states that today he started having some pain in his leg and when he put his leg up, the swelling did not go down and when he removed his pants to look at his leg he noticed that it had become quite reddened. He does have a history of DVT and went off his anticoagulation approximately 2 years ago. He states that he went off his anticoagulation because he was unable to drive 80 miles roundtrip to get his INR done. He also states that he had been going to the wound center to care for his ulcer under his plantar surface of his amputated great toe, but he did receive a bill and states that he could not afford it and quit going to the wound care clinic. He states that the wound has been more reddened and some minor drainage was noted. With these symptoms, he presented to the emergency room where he was indeed diagnosed with an acute cellulitis as well as possible DVT. Unfortunately the ultrasound reading and reports are not able to be done at this time. He is currently being admitted to the medical service for further evaluation of his left lower extremity cellulitis and possible DVT. At the time I am seeing Rashad, he does confirm the above history. He states that he is having a fair amount of pain in his left lower extremity. He has not had any fever or chills that he knows of. He has had a racing heart. He otherwise denies any other acute complaints or problems at the time I am seeing him. On admission patient was treated with IV fluids, IV clindamycin. Wound Care consult and orders obtained. Wound culture obtained. MRI of left foot ordered and demonstrated strong likelihood of osteomyelitis. I did discuss the case with our hot kettle tender who agreed to see the patient in consultation. In order to address his complaint of increased pain in his lower extremity, hydromorphone was given. We discussed with him the possibility of continuing the medication on the day that he was admitted, 08/03/2023, but he opted to restart the buprenorphine with naloxone on 08/04/2023, which we did. Throughout patient's hospital stay he acted angry and inpatient toward the staff. He belittled the staff. Seemed to have difficulty conversing with the staff, instead did a fair amount of cussing and fault finding. On the morning that he left the hospital against medical advice, more than once he stated that it seems like his threats were finally starting to work and that people were finally starting to listen to him. On 08/04/2023 nursing staff, myself, and our patient advocate spent long periods of time trying to listen to him and help address his concerns. He stated multiple times that all the people that work at [facility] are inept and not trustworthy. He said he knew that before he came here but came here anyway because he thought his life and limb were in peril. In the end the patient left hospital against medical advice and we were not able to arrange for transfer to [facility] per his request. For additional details of his hospital course see notes under diagnosis section for specific conditions. Status at Discharge Overall status at discharge: patient is not back to baseline Time Spent with Patient Time attestation: Total time spent providing and/or coordinating discharge services: Time spent: Greater than 30 minutes Specific discharge activities: 90 minutes spent with patient on date of discharge addressing his multiple concerns and complaints. Exam Narrative: Exam Narrative: Examined the patient in his hospital room. He appeared to be in no acute physical distress. Patient was angry, verbally aggressive, and inpatient. I was unable to carry on a substantive conversation with the patient due to the patient's unwillingness to engage in dialogue - he had a lot to say but was in great measure not willing to listen. For instance, he claimed that no one listen to him when he tried to tell them what medications he takes at home. When I attempted to ferret out from him exactly what medications he was taking at home, what time of day, and how much, it was very difficult for him to answer directly, he seemed more interested in finding fault with the staff at [facility]. He did allow me to take a look at his leg today. The intensity of the redness and warmth of his left leg decreased substantially overnight. When touching the skin on his left leg he did not spontaneously indicate pain by word or action as he did the day before. I did not examine his wound today on the bottom of his left foot. Patient left against medical advice before I had an opportunity to examine his foot today. Did have the dressing which we applied still in place. No focal motor neurologic deficits. Const: Vital Signs, click to edit/add: Vital Signs - 24 hr 08/03/23 15:00 08/03/23 15:00 08/03/23 19:00 Temperature 98.1 F 98.3 F Pulse Rate [Right Pulse Oximeter] 95 104 H 104 H Respiratory Rate 16 16 16 Blood Pressure [Ri ght Arm] 163/101 H 150/96 H Pulse Oximetry 95 98 Oxygen Delivery Me thod Room Air Room Air 08/04/23 01:55 08/04/23 01:55 08/04/23 03:40 Temperature 98.2 F 98.3 F Pulse Rate [Right Pulse Oximeter] 104 H 104 H 88 Respiratory Rate 18 18 Blood Pressure [Ri ght Arm] 147/100 H 175/101 H Pulse Oximetry 97 95 Oxygen Delivery Me thod Room Air Room Air 08/04/23 08:54 Temperature 98.3 F Pulse Rate [Right Pulse Oximeter] 99 Respiratory Rate 16 Blood Pressure [Ri ght Arm] 174/107 H Pulse Oximetry 96 Oxygen Delivery Md thod Room Air Documenting provider has reviewed patient's vital signs: yes DS: Data Data Completed and Pending Labs on day of discharge: Labs from last 24 hours 08/04/23 03:15 WBC 13.53 H RBC 4.17 L Hgb 11.9 L Hct 36.6 L MCV 88 MCH 29 MCHC 33 Plt Count 293 Sodium 134 L Potassium 4.0 Chloride 105 Carbon Dioxide 24 Anion Gap 5 L BUN 18 Creatinine 1.3 Estimated Creat Clear 88.10 Estimated GFR 69 Glucose 94 Hemoglobin A1c 5.4 Lactate 0.8 Calcium 8.2 L Phosphorus 3.6 Magnesium 2.1 C-Reactive Protein 8.0 H Preliminary micro results at discharge 08/03/23 17:45 Wound Culture - Preliminary Foot Left Imaging X-ray left foot: Attestation: I have reviewed the pertinent imaging results. Radiologist's impression: 1. Status post interval amputation at the 1st MTP joint. 2. Moderate to severe soft tissue swelling involving the amputation site, with possible subtle osteopenia of the metatarsal head medially, without definite osseous erosions identified. If there is continue clinical suspicion for acute osteomyelitis, consider further evaluation with MR or a nuclear medicine triple phase bone scan. 3. No acute fractures or dislocation. Venous ultrasound left lower extremity: Radiologist's impression: No evidence of deep vein thrombosis within the left lower extremity. MRI left foot: Attestation: I have reviewed the pertinent imaging results. Radiologist's impression: 1. Soft tissue ulceration or wound along the plantar aspect of the great toe. There are changes of suspected phlegmon surrounding the first metatarsal head with fluid signal intensity seen along the distal articular surfaces of the first metatarsal head and neck. Abscess in this region cannot be excluded. Questionable changes of osteomyelitis involving the first metatarsal head and neck can be seen. 2. Status post amputation of the great toe at the level of the first MTP joint. 3. Stress changes involving the fifth metatarsal shaft. 4. No definite neurovascular abnormalities are identified. Discharge Plan Discharge Disposition: Left Against Medical Advice Date of Admission: 08/03/23 08:54 Consulting Providers: Rose Brenner; Emmanuelle Polanco; Tru Ortiz Primary Care Provider: Provider,Not a Local Discharge Medications: Continued lisinopril 20 mg tablet 20 mg PO DAILY amlodipine 10 mg tablet 10 mg PO DAILY buprenorphine-naloxone 8-2 mg film 2 film sublingual DAILY finasteride 5 mg tablet 5 mg PO DAILY folic acid 20 mg capsule 20 mg PO DAILY Held methotrexate sodium 2.5 mg tablet 15 mg PO Q7D Hold Instructions: Resume on 08/11/23. Recommended patient hold methotrexate until such time as it is determined by his physicians that he may safely resume this, given his active infected left sub 1st metatarsal wound and possible osteomyelitis of head of left 1st metatarsal. Discharge Orders: Discharge Order (Routine); Ordered 08/04/23 Ordered By: Frank VANEGAS Form Signed: Yes Discharge Comments: Patient left against medical advice.
== END 2023-08-04 10:55 | disposition left against medical advice (07) | DRG 593 ==
LOC: ED 08-03 01:41 → MEDSURG 08-03 02:07
PROVIDERS: Internal Medicine; Admitting Provider Internal Medicine; Emergency Provider Family Medicine; Visit Provider Family Medicine
DX: L97.428 Non-pressure chronic ulcer of left heel and midfoot with other specified severity (principal); E87.1 Hypo-osmolality and hyponatremia; L03.116 Cellulitis of left lower limb; M86.172 Other acute osteomyelitis, left ankle and foot; Z89.412 Acquired absence of left great toe; Z79.631 Long term (current) use of antimetabolite agent; Z86.718 Personal history of other venous thrombosis and embolism; M32.9 Systemic lupus erythematosus, unspecified; L40.9 Psoriasis, unspecified; F17.210 Nicotine dependence, cigarettes, uncomplicated; Z79.01 Long term (current) use of anticoagulants; E86.0 Dehydration; I12.9 Hypertensive chronic kidney disease with stage 1 through stage 4 chronic kidney disease, or unspecified chronic kidney disease; N18.30 Chronic kidney disease, stage 3 unspecified; Z59.7 Insufficient social insurance and welfare support; Z91.190 Patient's noncompliance with other medical treatment and regimen due to financial hardship; Z91.198 Patient's noncompliance with other medical treatment and regimen for other reason
CPT/HCPCS: 36415; 73620; 73718; 80048; 80053; 83036; 83605; 83735; 84100; 84145; 85025; 85027; 85379; 85610; 86140; 87070; 87186; 93971; 94761; 99284; 99285; A9270; G0378; J0574; J0736; J1170; J1650; J7030